=== PATIENT | male | born 1980 | race Caucasian/White ===

== ENCOUNTER 2017-02-06 02:47 | Inpatient (IN) | payer MEDICAID ==
[~2017-02-06] VITALS: Ht 165.1 cm; Wt 67.6 kg
[~2017-02-06 02:47] MED LIST: CLON-570 PO; FLUO-191 PO; HALO10 PO; TRAZ-147 PO; VALP250 PO
[2017-02-06 03:08] LABS: BASOPHILS % (AUTO) 0.9 % (0.0-2.0); EOSINOPHILS % (AUTO) 0.2 % (1.0-6.0); HEMOGLOBIN 13.6 g/dL (13.5-17.5); LYMPHOCYTES # (AUTO) 2.8 K/uL (1.0-4.8); LYMPHOCYTES % (AUTO) 30.5 % (22.0-44.0); MEAN CORPUSCULAR HEMOGLOBIN 30.3 pg (26.0-34.0); MEAN CORPUSCULAR VOLUME 89 fL (80-100); MONOCYTES # (AUTO) 0.9 K/uL (0.1-1.0); MONOCYTES % (AUTO) 9.7 % (2.0-9.0); NEUTROPHILS # (AUTO) 5.4 K/uL (1.8-7.7); NEUTROPHILS % (AUTO) 58.7 % (40.0-70.0); PLATELET COUNT (AUTO) 227 K/uL (150-450); RED BLOOD CELL COUNT(AUTO) 4.49 MIL/uL (4.50-5.90); RED CELL DISTRIBUTION WIDTH 15.3 % (11.5-14.5); WHITE BLOOD COUNT (AUTO) 9.2 K/uL (4.5-11.0)
[2017-02-06 03:16] LABS: ANION GAP 13 mmol/L (8-16); CALCIUM, TOTAL 8.9 mg/dL (8.8-10.5); CARBON DIOXIDE 26 mmol/L (22-29); CHLORIDE 107 mmol/L (98-107); CREATININE 0.76 mg/dL (0.60-1.30); GLOMERULAR FILTR. RATE CALC > 60 mL/min (>60); POTASSIUM 3.4 mmol/L (3.5-5.1); SODIUM SERUM 146 mmol/L (136-145); UREA NITROGEN, BLOOD 18 mg/dL (7-18)
[2017-02-06 03:23] LABS: ALANINE AMINOTRANSFERASE 31 U/L (12-78); ALBUMIN 3.8 g/dL (3.4-5.0); ASPARTATE AMINOTRANSFERASE 19 U/L (15-37); BILIRUBIN,TOTAL 0.4 mg/dL (0.1-1.0); TOTAL PROTEIN, SERUM 7.9 g/dL (6.4-8.2)
[2017-02-06] MEDS ORDERED: DiphenhydrAMINE HCL 50 MG/ML VIAL IM ONE (09:00)
[2017-02-06] MEDS ORDERED: HALOPERIDOL LACTATE 5 MG/ML VIAL IM ONE (09:00)
[2017-02-06] MEDS ORDERED: LORazepam 2 MG/ML VIAL IM ONE (09:00)
[2017-02-06] MEDS ORDERED: POTASSIUM CHLORIDE 20 MEQ ER TABLET PO ONE (14:15)
[2017-02-06 17:00] VITALS: BP 166/109
[2017-02-06] MEDS: VALPROIC ACID 250 MG CAPSULE PO SCH ×2 (17:07→17:10)
[2017-02-06] MEDS: HALOPERIDOL 10 MG TABLET PO SCH ×2 (17:07→17:11)
[2017-02-06] MEDS ORDERED: CloNIDine HCL 0.1 MG TABLET PO ONE (20:00)
[2017-02-06] MEDS ORDERED: TraZODone HCL 100 MG TABLET PO SCH (21:00)
[2017-02-06 21:58] VITALS: BP 128/88
[2017-02-07 02:05] VITALS: BP 159/115
[2017-02-07] MEDS: LORazepam 2 MG TABLET PO PRN ×2 (02:09→09:15)
[2017-02-07 08:00] VITALS: BP 143/96
[2017-02-07] MEDS: CloNIDine HCL 0.1 MG TABLET PO SCH ×2 (09:15→16:31)
[2017-02-07] MEDS: HALOPERIDOL 10 MG TABLET PO SCH ×2 (09:15→16:31)
[2017-02-07] MEDS: VALPROIC ACID 250 MG CAPSULE PO SCH ×2 (09:15→16:31)
[2017-02-07] MEDS: FLUoxetine HCL 20 MG CAPSULE PO SCH (09:15)
[2017-02-07] MEDS: TraZODone HCL 100 MG TABLET PO SCH (20:02)
[2017-02-07 20:31] VITALS: BP 139/93
[2017-02-08 02:48] VITALS: BP 150/100
[2017-02-08] MEDS: HALOPERIDOL 5 MG TABLET PO PRN (04:52)
[2017-02-08 08:30] VITALS: BP 132/86
[2017-02-08] MEDS: VALPROIC ACID 250 MG CAPSULE PO SCH ×2 (09:40→16:29)
[2017-02-08] MEDS: FLUoxetine HCL 20 MG CAPSULE PO SCH (09:40)
[2017-02-08] MEDS: HALOPERIDOL 10 MG TABLET PO SCH ×2 (09:40→16:28)
[2017-02-08] MEDS: CloNIDine HCL 0.1 MG TABLET PO SCH ×2 (09:41→16:28)
[2017-02-08] MEDS: LISINOPRIL 20 MG TABLET PO SCH (09:41)
[2017-02-08 17:04] VITALS: BP 148/61
[2017-02-08] MEDS: LOVASTATIN 20 MG TABLET PO SCH (17:32)
[2017-02-08] MEDS: TraZODone HCL 100 MG TABLET PO SCH (20:46)
[2017-02-09] MEDS: ZOLPIDEM TARTRATE 10 MG TABLET PO PRN (01:11)
[2017-02-09 02:56] VITALS: BP 143/92
[2017-02-09 08:44] VITALS: BP 138/93
[2017-02-09] MEDS ORDERED: HALOPERIDOL DECANOATE 100 MG/ML VIAL IM SCH (09:00)
[2017-02-09] MEDS: HALOPERIDOL 10 MG TABLET PO SCH ×2 (09:26→16:58)
[2017-02-09] MEDS: FLUoxetine HCL 20 MG CAPSULE PO SCH (09:26)
[2017-02-09] MEDS: LISINOPRIL 20 MG TABLET PO SCH (09:26)
[2017-02-09] MEDS: CloNIDine HCL 0.1 MG TABLET PO SCH ×2 (09:27→16:57)
[2017-02-09] MEDS: VALPROIC ACID 250 MG CAPSULE PO SCH ×2 (09:27→16:57)
[2017-02-09] MEDS: LOVASTATIN 20 MG TABLET PO SCH (16:57)
[2017-02-09 18:40] VITALS: BP 129/79
[2017-02-09] MEDS: TraZODone HCL 100 MG TABLET PO SCH (20:20)
[2017-02-10 01:42] VITALS: BP 126/77
[2017-02-10] MEDS: LORazepam 2 MG TABLET PO PRN (01:42)
[2017-02-10] MEDS: HALOPERIDOL 5 MG TABLET PO PRN (01:42)
[2017-02-10] MEDS: CloNIDine HCL 0.1 MG TABLET PO SCH ×2 (09:05→17:26)
[2017-02-10] MEDS: LISINOPRIL 20 MG TABLET PO SCH (09:06)
[2017-02-10] MEDS: HALOPERIDOL 10 MG TABLET PO SCH ×2 (09:06→17:26)
[2017-02-10] MEDS: FLUoxetine HCL 20 MG CAPSULE PO SCH (09:06)
[2017-02-10] MEDS: VALPROIC ACID 250 MG CAPSULE PO SCH ×2 (09:07→17:26)
[2017-02-10 09:52] VITALS: BP 115/79
[2017-02-10 17:19] VITALS: BP 116/77
[2017-02-10] MEDS: LOVASTATIN 20 MG TABLET PO SCH (17:26)
[2017-02-10] MEDS: TraZODone HCL 100 MG TABLET PO SCH (21:15)
[2017-02-11] MEDS: HALOPERIDOL 10 MG TABLET PO SCH ×2 (08:57→16:45)
[2017-02-11] MEDS: LISINOPRIL 20 MG TABLET PO SCH (08:57)
[2017-02-11] MEDS: CloNIDine HCL 0.1 MG TABLET PO SCH ×2 (08:58→16:45)
[2017-02-11] MEDS: VALPROIC ACID 250 MG CAPSULE PO SCH ×2 (08:58→16:45)
[2017-02-11] MEDS: FLUoxetine HCL 20 MG CAPSULE PO SCH (08:58)
[2017-02-11 10:21] VITALS: BP 131/82
[2017-02-11] MEDS: LOVASTATIN 20 MG TABLET PO SCH (16:45)
[2017-02-11] MEDS: TraZODone HCL 100 MG TABLET PO SCH (20:40)
[2017-02-12 04:03] VITALS: BP 126/80
[2017-02-12] MEDS: LISINOPRIL 20 MG TABLET PO SCH (07:59)
[2017-02-12] MEDS: HALOPERIDOL 10 MG TABLET PO SCH ×2 (08:00→16:37)
[2017-02-12] MEDS: FLUoxetine HCL 20 MG CAPSULE PO SCH (08:00)
[2017-02-12] MEDS: CloNIDine HCL 0.1 MG TABLET PO SCH ×2 (08:00→16:37)
[2017-02-12] MEDS: VALPROIC ACID 250 MG CAPSULE PO SCH ×2 (08:01→16:36)
[2017-02-12 08:12] VITALS: BP 142/85
[2017-02-12] MEDS: LOVASTATIN 20 MG TABLET PO SCH (16:38)
[2017-02-12 19:20] VITALS: BP 117/70
[2017-02-12] MEDS: TraZODone HCL 100 MG TABLET PO SCH (21:16)
[2017-02-13 05:30] VITALS: BP 123/82
[2017-02-13 08:00] VITALS: BP 159/96
[2017-02-13] MEDS: VALPROIC ACID 250 MG CAPSULE PO SCH ×2 (09:32→16:28)
[2017-02-13] MEDS: CloNIDine HCL 0.1 MG TABLET PO SCH ×2 (09:32→17:31)
[2017-02-13] MEDS: HALOPERIDOL 10 MG TABLET PO SCH ×2 (09:32→16:28)
[2017-02-13] MEDS: FLUoxetine HCL 20 MG CAPSULE PO SCH (09:33)
[2017-02-13] MEDS: LISINOPRIL 20 MG TABLET PO SCH (09:33)
[2017-02-13] MEDS: LOVASTATIN 20 MG TABLET PO SCH (16:28)
[2017-02-13 16:29] VITALS: BP 121/75
[2017-02-13] MEDS: TraZODone HCL 100 MG TABLET PO SCH (20:34)
[2017-02-14] MEDS: FLUoxetine HCL 20 MG CAPSULE PO SCH (09:33)
[2017-02-14] MEDS: CloNIDine HCL 0.1 MG TABLET PO SCH ×2 (09:33→16:30)
[2017-02-14] MEDS: HALOPERIDOL 10 MG TABLET PO SCH ×2 (09:33→16:30)
[2017-02-14] MEDS: LISINOPRIL 20 MG TABLET PO SCH (09:33)
[2017-02-14] MEDS: VALPROIC ACID 250 MG CAPSULE PO SCH ×2 (09:34→16:30)
[2017-02-14 10:12] VITALS: BP 129/80
[2017-02-14] MEDS: LOVASTATIN 20 MG TABLET PO SCH (16:30)
[2017-02-14] MEDS: TraZODone HCL 100 MG TABLET PO SCH (20:18)
[2017-02-14 21:49] VITALS: BP 125/76
[2017-02-15] MEDS: LORazepam 2 MG TABLET PO PRN (02:25)
[2017-02-15] MEDS: ZOLPIDEM TARTRATE 10 MG TABLET PO PRN (02:25)
[2017-02-15 03:33] VITALS: BP 132/85
[2017-02-15 08:05] VITALS: BP 120/73
[2017-02-15] MEDS: FLUoxetine HCL 20 MG CAPSULE PO SCH (08:53)
[2017-02-15] MEDS: CloNIDine HCL 0.1 MG TABLET PO SCH ×2 (08:53→16:48)
[2017-02-15] MEDS: LISINOPRIL 20 MG TABLET PO SCH (08:53)
[2017-02-15] MEDS: VALPROIC ACID 250 MG CAPSULE PO SCH ×2 (08:53→16:48)
[2017-02-15] MEDS: HALOPERIDOL 10 MG TABLET PO SCH ×2 (08:53→16:48)
[2017-02-15 16:36] VITALS: BP 134/81
[2017-02-15] MEDS: LOVASTATIN 20 MG TABLET PO SCH (16:48)
[2017-02-15] MEDS: TraZODone HCL 100 MG TABLET PO SCH (21:14)
[2017-02-16] MEDS: ZOLPIDEM TARTRATE 10 MG TABLET PO PRN (03:01)
[2017-02-16] MEDS: LORazepam 2 MG TABLET PO PRN (03:01)
[2017-02-16] MEDS: LISINOPRIL 20 MG TABLET PO SCH (08:22)
[2017-02-16] MEDS: HALOPERIDOL 10 MG TABLET PO SCH ×2 (08:22→18:02)
[2017-02-16] MEDS: CloNIDine HCL 0.1 MG TABLET PO SCH ×2 (08:23→18:01)
[2017-02-16] MEDS: FLUoxetine HCL 20 MG CAPSULE PO SCH (08:23)
[2017-02-16] MEDS: VALPROIC ACID 250 MG CAPSULE PO SCH ×2 (08:23→18:01)
[2017-02-16 08:41] VITALS: BP_SYST 105; BP_SYST 148; BP_DIAS 56; BP_DIAS 99
[2017-02-16] MEDS: LOVASTATIN 20 MG TABLET PO SCH (18:01)
[2017-02-16] MEDS: TraZODone HCL 100 MG TABLET PO SCH (21:40)
[2017-02-16 21:52] VITALS: BP 139/78
[2017-02-17 00:37] VITALS: BP 140/80
[2017-02-17] MEDS: HALOPERIDOL 5 MG TABLET PO PRN (00:37)
[2017-02-17 08:00] VITALS: BP 150/100
[2017-02-17] MEDS: HALOPERIDOL 10 MG TABLET PO SCH ×2 (10:00→16:12)
[2017-02-17] MEDS: FLUoxetine HCL 20 MG CAPSULE PO SCH (10:00)
[2017-02-17] MEDS: CloNIDine HCL 0.1 MG TABLET PO SCH ×2 (10:00→16:12)
[2017-02-17] MEDS: LISINOPRIL 20 MG TABLET PO SCH (10:00)
[2017-02-17] MEDS: VALPROIC ACID 250 MG CAPSULE PO SCH ×2 (10:00→16:13)
[2017-02-17 16:10] VITALS: BP 148/93
[2017-02-17] MEDS: LOVASTATIN 20 MG TABLET PO SCH (18:37)
[2017-02-17] MEDS: TraZODone HCL 100 MG TABLET PO SCH (21:36)
[2017-02-18 02:52] VITALS: BP 137/88
[2017-02-18] MEDS: HALOPERIDOL 5 MG TABLET PO PRN (02:58)
[2017-02-18 09:19] VITALS: BP 147/88
[2017-02-18] MEDS: CloNIDine HCL 0.1 MG TABLET PO SCH ×2 (09:46→17:02)
[2017-02-18] MEDS: VALPROIC ACID 250 MG CAPSULE PO SCH ×2 (09:46→16:03)
[2017-02-18] MEDS: FLUoxetine HCL 20 MG CAPSULE PO SCH (09:46)
[2017-02-18] MEDS: LISINOPRIL 20 MG TABLET PO SCH (09:47)
[2017-02-18] MEDS: HALOPERIDOL 10 MG TABLET PO SCH ×2 (09:47→16:04)
[2017-02-18] MEDS: LOVASTATIN 20 MG TABLET PO SCH (16:03)
[2017-02-18 16:52] VITALS: BP 115/75
[2017-02-18] MEDS: TraZODone HCL 100 MG TABLET PO SCH (20:44)
[2017-02-19] MEDS: HALOPERIDOL 5 MG TABLET PO PRN (04:18)
[2017-02-19 04:27] VITALS: BP 144/91
[2017-02-19 08:02] VITALS: BP 131/87
[2017-02-19] MEDS: HALOPERIDOL 10 MG TABLET PO SCH (08:28)
[2017-02-19] MEDS: CloNIDine HCL 0.1 MG TABLET PO SCH (08:28)
[2017-02-19] MEDS: FLUoxetine HCL 20 MG CAPSULE PO SCH (08:28)
[2017-02-19] MEDS: LISINOPRIL 20 MG TABLET PO SCH (08:28)
[2017-02-19] MEDS: VALPROIC ACID 250 MG CAPSULE PO SCH (08:29)
[2017-02-19] MEDS ORDERED: HALO100V4 IM (10:32)
[2017-02-19] MEDS ORDERED: TRAZ150 PO (10:34)
[2017-02-19] MEDS ORDERED: LISI-662 PO (10:37)
[2017-02-19] MEDS ORDERED: LOVA20 PO (10:39)
[2017-02-19 13:37] LABS: BASOPHILS % (AUTO) 0.4 % (0.0-2.0); EOSINOPHILS % (AUTO) 0.5 % (1.0-6.0); HEMATOCRIT 40.8 % (41-53); HEMOGLOBIN 13.8 g/dL (13.5-17.5); LYMPHOCYTES # (AUTO) 2.5 K/uL (1.0-4.8); LYMPHOCYTES % (AUTO) 26.7 % (22.0-44.0); MEAN CORPUSCULAR HEMOGLOBIN 30.6 pg (26.0-34.0); MEAN CORPUSCULAR HGB CONC 33.8 G/dL (31.0-37.0); MEAN CORPUSCULAR VOLUME 91 fL (80-100); MONOCYTES # (AUTO) 0.7 K/uL (0.1-1.0); MONOCYTES % (AUTO) 7.1 % (2.0-9.0); NEUTROPHILS # (AUTO) 6.1 K/uL (1.8-7.7); NEUTROPHILS % (AUTO) 65.3 % (40.0-70.0); PLATELET COUNT (AUTO) 219 K/uL (150-450); RED BLOOD CELL COUNT(AUTO) 4.51 MIL/uL (4.50-5.90); RED CELL DISTRIBUTION WIDTH 15.6 % (11.5-14.5); WHITE BLOOD COUNT (AUTO) 9.4 K/uL (4.5-11.0)
[2017-02-19 13:46] LABS: ANION GAP 7 mmol/L (8-16); CALCIUM, TOTAL 9.2 mg/dL (8.8-10.5); CARBON DIOXIDE 31 mmol/L (22-29); CHLORIDE 99 mmol/L (98-107); CREATININE 0.75 mg/dL (0.60-1.30); GLOMERULAR FILTR. RATE CALC > 60 mL/min (>60); POTASSIUM 4.7 mmol/L (3.5-5.1); SODIUM SERUM 137 mmol/L (136-145); UREA NITROGEN, BLOOD 13 mg/dL (7-18)
[2017-02-19 13:52] LABS: ALANINE AMINOTRANSFERASE 22 U/L (12-78); ALBUMIN 3.9 g/dL (3.4-5.0); ASPARTATE AMINOTRANSFERASE 13 U/L (15-37); BILIRUBIN,TOTAL 0.2 mg/dL (0.1-1.0); TOTAL PROTEIN, SERUM 8.1 g/dL (6.4-8.2); VALPROIC ACID 103 mcg/mL (50-100)
== END 2017-02-19 14:30 | disposition home or self-care (01) | DRG 751 ==
LOC: EMS 02:48 → 3EI 15:35
PROVIDERS: ADMIT Psychiatry & Neurology Psychiatry; ATTEND Psychiatry & Neurology Psychiatry
DX: F29 Unspecified psychosis not due to a substance or known physiological condition (principal); F20.9 Schizophrenia, unspecified; I10 Essential (primary) hypertension; E78.5 Hyperlipidemia, unspecified; F41.9 Anxiety disorder, unspecified; F22 Delusional disorders; Z79.899 Other long term (current) drug therapy
CPT/HCPCS: 84132; 87081; 96372; 99285; G0480; J1200; J1630; J1631; J2060

== ENCOUNTER 2017-03-22 01:20 | Emergency (ER) | payer MEDICAID ==
[~2017-03-22] VITALS: Ht 167.6 cm; Wt 68.2 kg
[~2017-03-22 01:20] MED LIST changes: +HALO100V4 IM; +LISI-662 PO; +LOVA20 PO; -TRAZ-147 PO; +TRAZ150 PO
[2017-03-22] MEDS ORDERED: OLANZapine 5 MG TABLET PO ONE (02:00)
[2017-03-22 02:15] LABS: ANION GAP 8 mmol/L (8-16); CARBON DIOXIDE 29 mmol/L (22-29); CHLORIDE 102 mmol/L (98-107); CREATININE 0.81 mg/dL (0.60-1.30); GLOMERULAR FILTR. RATE CALC > 60 mL/min (>60); POTASSIUM 3.7 mmol/L (3.5-5.1); SODIUM SERUM 139 mmol/L (136-145); UREA NITROGEN, BLOOD 17 mg/dL (7-18)
[2017-03-22 02:21] LABS: ALANINE AMINOTRANSFERASE 27 U/L (12-78); ALBUMIN 4.4 g/dL (3.4-5.0); ASPARTATE AMINOTRANSFERASE 31 U/L (15-37); BILIRUBIN,TOTAL 0.5 mg/dL (0.1-1.0); TOTAL PROTEIN, SERUM 8.3 g/dL (6.4-8.2)
[2017-03-22 02:23] LABS: BASOPHILS # (AUTO) 0.05 K/uL (0.00-0.20); BASOPHILS % (AUTO) 0.6 % (0.0-2.0); EOSINOPHILS # (AUTO) 0.05 K/uL (0.00-0.70); EOSINOPHILS % (AUTO) 0.64 % (1.0-6.0); HEMOGLOBIN 13.5 g/dL (13.5-17.5); LYMPHOCYTES # (AUTO) 3.2 K/uL (1.0-4.8); LYMPHOCYTES % (AUTO) 39.1 % (22.0-44.0); MEAN CORPUSCULAR HEMOGLOBIN 31.1 pg (26.0-34.0); MEAN CORPUSCULAR HGB CONC 33.8 G/dL (31.0-37.0); MEAN CORPUSCULAR VOLUME 92 fL (80-100); MONOCYTES # (AUTO) 0.8 K/uL (0.1-1.0); MONOCYTES % (AUTO) 10.4 % (2.0-9.0); NEUTROPHILS % (AUTO) 49.4 % (40.0-70.0); PLATELET COUNT (AUTO) 222 K/uL (150-450); RED BLOOD CELL COUNT(AUTO) 4.35 MIL/uL (4.50-5.90); RED CELL DISTRIBUTION WIDTH 14.7 % (11.5-14.5); WHITE BLOOD COUNT (AUTO) 8.2 K/uL (4.5-11.0)
[2017-03-22 03:04] VITALS: BP 144/87
== END 2017-03-22 03:10 | disposition home or self-care (01) ==
LOC: EMS 01:21
DX: F25.9 Schizoaffective disorder, unspecified (principal); F32.9 Major depressive disorder, single episode, unspecified; I10 Essential (primary) hypertension
CPT/HCPCS: 36415; 80053; 80307; 85025; 99284; G0480

== ENCOUNTER 2017-03-23 21:39 | Inpatient (IN) | payer MEDICAID ==
[~2017-03-23] VITALS: Ht 167.6 cm; Wt 71.7 kg
[2017-03-23] MEDS ORDERED: LORazepam 2 MG/ML VIAL ONE (21:59)
[2017-03-23] MEDS ORDERED: HALOPERIDOL LACTATE 5 MG/ML VIAL ONE (21:59)
[2017-03-23] MEDS ORDERED: DiphenhydrAMINE HCL 50 MG/ML VIAL ONE (21:59)
[2017-03-23] MEDS ORDERED: DiphenhydrAMINE HCL 50 MG/ML VIAL IM ONE (22:00)
[2017-03-23] MEDS ORDERED: LORazepam 2 MG/ML VIAL IM ONE (22:00)
[2017-03-23] MEDS ORDERED: HALOPERIDOL LACTATE 5 MG/ML VIAL IM ONE (22:00)
[2017-03-23 22:16] LABS: BASOPHILS % (AUTO) 0.7 % (0.0-2.0); EOSINOPHILS % (AUTO) 0.4 % (1.0-6.0); HEMOGLOBIN 13.1 g/dL (13.5-17.5); LYMPHOCYTES # (AUTO) 2.4 K/uL (1.0-4.8); LYMPHOCYTES % (AUTO) 29.2 % (22.0-44.0); MEAN CORPUSCULAR HEMOGLOBIN 30.9 pg (26.0-34.0); MEAN CORPUSCULAR HGB CONC 33.6 G/dL (31.0-37.0); MEAN CORPUSCULAR VOLUME 92 fL (80-100); MONOCYTES # (AUTO) 0.6 K/uL (0.1-1.0); MONOCYTES % (AUTO) 7.6 % (2.0-9.0); NEUTROPHILS % (AUTO) 62.1 % (40.0-70.0); PLATELET COUNT (AUTO) 237 K/uL (150-450); RED BLOOD CELL COUNT(AUTO) 4.24 MIL/uL (4.50-5.90); RED CELL DISTRIBUTION WIDTH 14.6 % (11.5-14.5)
[2017-03-23 22:27] LABS: ANION GAP 11 mmol/L (8-16); CALCIUM, TOTAL 8.9 mg/dL (8.8-10.5); CARBON DIOXIDE 25 mmol/L (22-29); CHLORIDE 102 mmol/L (98-107); CREATININE 1.11 mg/dL (0.60-1.30); GLOMERULAR FILTR. RATE CALC > 60 mL/min (>60); GLUCOSE,RANDOM 100 mg/dL (70-110); POTASSIUM 4.3 mmol/L (3.5-5.1); SODIUM SERUM 138 mmol/L (136-145); UREA NITROGEN, BLOOD 17 mg/dL (7-18)
[2017-03-23 22:42] LABS: ALANINE AMINOTRANSFERASE 28 U/L (12-78); ALBUMIN 3.9 g/dL (3.4-5.0); ALKALINE PHOSPHATASE 47 U/L (46-116); ASPARTATE AMINOTRANSFERASE 31 U/L (15-37); BILIRUBIN,TOTAL 0.5 mg/dL (0.1-1.0); TOTAL PROTEIN, SERUM 7.5 g/dL (6.4-8.2)
[2017-03-23 22:59] LABS: VALPROIC ACID < 2 mcg/mL (50-100)
[2017-03-24 00:51] LABS: CHOL/HDL RATIO 3.5 (4.2-7.3); CHOLESTEROL 184 mg/dL (131-200); HDL CHOLESTEROL 53 mg/dL (40-60); LDL CHOL (CALC.) 117 mg/dL (0-130); TRIGLYCERIDES 69 mg/dL (15-150)
[2017-03-24 04:43] VITALS: BP 142/93
[2017-03-24] MEDS ORDERED: INFLUENZA VIRUS VACCINE QVS 2017-18 (3YR+)/PF 60 MCG/0.5 ML SYRINGE IM ONE (06:15)
[2017-03-24] MEDS ORDERED: PNEUMOCOCCAL VACCINE POLYVALENT 0.5 ML VIAL [PPSV23] IM ONE (06:15)
[2017-03-24 08:11] VITALS: BP 145/90
[2017-03-24 08:11] LABS: APPEARANCE,URINE CLEAR (CLEAR); BILIRUBIN,URINE NEGATIVE (NEGATIVE); GLUCOSE, URINE (UA) NEGATIVE (NEGATIVE); KETONES,URINE NEGATIVE (NEGATIVE); LEUKOCYTE ESTERASE ,URINE NEGATIVE (NEGATIVE); NITRATE,URINE NEGATIVE (NEGATIVE); OCCULT BLOOD,URINE NEGATIVE (NEGATIVE); PH,URINE 6.5 (5.0-8.0); PROTEIN,URINE NEGATIVE (NEGATIVE); UROBILINOGEN,URINE 0.2 mg/dL (<=1.0)
[2017-03-24 08:13] LABS: AMPHET/METH SCREEN,URINE NEGATIVE (NEGATIVE); BARBITURATE SCREEN, URINE NEGATIVE (NEGATIVE); BENZODIAZEPINES SCREEN,URINE NEGATIVE (NEGATIVE); CANNABINOID SCREEN,URINE NEGATIVE (NEGATIVE); COCAINE SCREEN,URINE NEGATIVE (NEGATIVE); METHADONE SCREEN, URINE NEGATIVE (NEGATIVE); OPIATE SCREEN,URINE NEGATIVE (NEGATIVE)
[2017-03-24 08:15] LABS: PHENCYCLIDINE SCREEN,URINE NEGATIVE (NEGATIVE)
[2017-03-24] MEDS: LORazepam 2 MG TABLET PO PRN ×2 (08:54→17:32)
[2017-03-24] MEDS: CloNIDine HCL 0.1 MG TABLET PO SCH ×2 (09:17→16:23)
[2017-03-24 16:18] VITALS: BP 137/84
[2017-03-24] MEDS: HALOPERIDOL 5 MG TABLET PO PRN (16:23)
[2017-03-24] MEDS: LOVASTATIN 20 MG TABLET PO SCH (17:00)
[2017-03-24] MEDS: TraZODone HCL 150 MG TABLET PO SCH (21:21)
[2017-03-25 06:32] VITALS: BP 135/85
[2017-03-25] MEDS: CloNIDine HCL 0.1 MG TABLET PO SCH ×2 (08:38→16:14)
[2017-03-25] MEDS: FLUoxetine HCL 20 MG CAPSULE PO SCH (08:38)
[2017-03-25] MEDS: VALPROIC ACID 250 MG CAPSULE PO SCH ×2 (08:38→16:14)
[2017-03-25 08:53] VITALS: BP 117/72
[2017-03-25] MEDS: LOVASTATIN 20 MG TABLET PO SCH (16:14)
[2017-03-25] MEDS: LORazepam 2 MG TABLET PO PRN (16:15)
[2017-03-25 16:36] VITALS: BP 115/74
[2017-03-25] MEDS: HALOPERIDOL 5 MG TABLET PO PRN (21:24)
[2017-03-25] MEDS: TraZODone HCL 150 MG TABLET PO SCH (21:24)
[2017-03-26 05:53] VITALS: BP 122/83
[2017-03-26] MEDS: VALPROIC ACID 250 MG CAPSULE PO SCH ×2 (08:10→17:04)
[2017-03-26] MEDS: CloNIDine HCL 0.1 MG TABLET PO SCH ×2 (08:10→17:04)
[2017-03-26] MEDS: FLUoxetine HCL 20 MG CAPSULE PO SCH (08:10)
[2017-03-26 08:19] VITALS: BP 125/74
[2017-03-26] MEDS: LORazepam 2 MG TABLET PO PRN ×2 (08:47→17:04)
[2017-03-26 16:00] VITALS: BP 120/73
[2017-03-26] MEDS: LOVASTATIN 20 MG TABLET PO SCH (17:04)
[2017-03-26] MEDS: TraZODone HCL 150 MG TABLET PO SCH (21:06)
[2017-03-26] MEDS: ZOLPIDEM TARTRATE 10 MG TABLET PO PRN (21:09)
[2017-03-27 05:53] VITALS: BP 119/75
[2017-03-27 08:16] VITALS: BP 138/74
[2017-03-27] MEDS ORDERED: HALOPERIDOL DECANOATE 100 MG/ML VIAL IM ONE (09:00)
[2017-03-27] MEDS: VALPROIC ACID 250 MG CAPSULE PO SCH ×2 (09:24→17:02)
[2017-03-27] MEDS: CloNIDine HCL 0.1 MG TABLET PO SCH ×2 (09:24→17:02)
[2017-03-27] MEDS: FLUoxetine HCL 20 MG CAPSULE PO SCH (09:24)
[2017-03-27] MEDS: LORazepam 2 MG TABLET PO PRN ×2 (09:24→17:02)
[2017-03-27 16:00] VITALS: BP 131/69
[2017-03-27] MEDS: LOVASTATIN 20 MG TABLET PO SCH (17:02)
[2017-03-27] MEDS: HALOPERIDOL 5 MG TABLET PO PRN (17:02)
[2017-03-27] MEDS: TraZODone HCL 150 MG TABLET PO SCH (20:32)
[2017-03-27] MEDS: ZOLPIDEM TARTRATE 10 MG TABLET PO PRN (20:32)
[2017-03-28 06:30] VITALS: BP 114/70
[2017-03-28 08:14] VITALS: BP 128/79
[2017-03-28] MEDS: CloNIDine HCL 0.1 MG TABLET PO SCH ×2 (08:14→16:06)
[2017-03-28] MEDS: FLUoxetine HCL 20 MG CAPSULE PO SCH (08:14)
[2017-03-28] MEDS: VALPROIC ACID 250 MG CAPSULE PO SCH ×2 (08:15→16:06)
[2017-03-28] MEDS: LORazepam 2 MG TABLET PO PRN ×3 (08:15→20:33)
[2017-03-28 16:00] VITALS: BP 120/77
[2017-03-28] MEDS: LOVASTATIN 20 MG TABLET PO SCH (16:07)
[2017-03-28] MEDS: HALOPERIDOL 5 MG TABLET PO PRN (16:07)
[2017-03-28] MEDS: ZOLPIDEM TARTRATE 10 MG TABLET PO PRN (20:33)
[2017-03-28] MEDS: TraZODone HCL 150 MG TABLET PO SCH (20:33)
[2017-03-29 05:55] VITALS: BP 124/79
[2017-03-29 08:14] VITALS: BP 117/64
[2017-03-29] MEDS: VALPROIC ACID 250 MG CAPSULE PO SCH ×2 (08:22→16:44)
[2017-03-29] MEDS: CloNIDine HCL 0.1 MG TABLET PO SCH ×2 (08:22→16:45)
[2017-03-29] MEDS: FLUoxetine HCL 20 MG CAPSULE PO SCH (08:22)
[2017-03-29] MEDS: LORazepam 2 MG TABLET PO PRN ×2 (08:23→16:45)
[2017-03-29 16:37] VITALS: BP 116/72
[2017-03-29] MEDS: LOVASTATIN 20 MG TABLET PO SCH (16:45)
[2017-03-29] MEDS: HALOPERIDOL 5 MG TABLET PO PRN (16:45)
[2017-03-29] MEDS: TraZODone HCL 150 MG TABLET PO SCH (20:27)
[2017-03-30 06:20] VITALS: BP 119/82
[2017-03-30 08:41] VITALS: BP 122/84
[2017-03-30] MEDS: FLUoxetine HCL 20 MG CAPSULE PO SCH (09:44)
[2017-03-30] MEDS: CloNIDine HCL 0.1 MG TABLET PO SCH ×2 (09:44→16:29)
[2017-03-30] MEDS: VALPROIC ACID 250 MG CAPSULE PO SCH ×2 (09:44→16:29)
[2017-03-30 16:00] VITALS: BP 130/81
[2017-03-30] MEDS: LOVASTATIN 20 MG TABLET PO SCH (16:28)
[2017-03-30] MEDS: TraZODone HCL 150 MG TABLET PO SCH (20:49)
[2017-03-31 06:38] VITALS: BP 129/82
[2017-03-31 08:22] VITALS: BP 126/71
[2017-03-31] MEDS: LORazepam 2 MG TABLET PO PRN (09:08)
[2017-03-31] MEDS: VALPROIC ACID 250 MG CAPSULE PO SCH ×2 (09:08→16:25)
[2017-03-31] MEDS: CloNIDine HCL 0.1 MG TABLET PO SCH ×2 (09:08→16:25)
[2017-03-31] MEDS: FLUoxetine HCL 20 MG CAPSULE PO SCH (09:08)
[2017-03-31 16:00] VITALS: BP 130/76
[2017-03-31] MEDS: LOVASTATIN 20 MG TABLET PO SCH (16:25)
[2017-03-31] MEDS: TraZODone HCL 150 MG TABLET PO SCH (20:28)
[2017-03-31] MEDS: ZOLPIDEM TARTRATE 10 MG TABLET PO PRN (21:25)
[2017-04-01 06:27] VITALS: BP 138/89
[2017-04-01 08:21] VITALS: BP 136/79
[2017-04-01] MEDS: VALPROIC ACID 250 MG CAPSULE PO SCH ×2 (08:38→16:46)
[2017-04-01] MEDS: FLUoxetine HCL 20 MG CAPSULE PO SCH (08:38)
[2017-04-01] MEDS: CloNIDine HCL 0.1 MG TABLET PO SCH ×2 (08:38→16:46)
[2017-04-01 16:00] VITALS: BP 130/84
[2017-04-01] MEDS: HALOPERIDOL 5 MG TABLET PO PRN (16:46)
[2017-04-01] MEDS: LORazepam 2 MG TABLET PO PRN (16:46)
[2017-04-01] MEDS: LOVASTATIN 20 MG TABLET PO SCH (16:47)
[2017-04-01] MEDS: TraZODone HCL 150 MG TABLET PO SCH (20:56)
[2017-04-02 07:05] VITALS: BP 131/78
[2017-04-02] MEDS: CloNIDine HCL 0.1 MG TABLET PO SCH ×2 (08:25→16:52)
[2017-04-02] MEDS: VALPROIC ACID 250 MG CAPSULE PO SCH ×2 (08:26→16:52)
[2017-04-02] MEDS: FLUoxetine HCL 20 MG CAPSULE PO SCH (08:26)
[2017-04-02 08:52] VITALS: BP 141/92
[2017-04-02 16:00] VITALS: BP 136/87
[2017-04-02] MEDS: LOVASTATIN 20 MG TABLET PO SCH (16:52)
[2017-04-02] MEDS: LORazepam 2 MG TABLET PO PRN (16:52)
[2017-04-02] MEDS: TraZODone HCL 150 MG TABLET PO SCH (20:31)
[2017-04-03 03:19] VITALS: BP 140/90
[2017-04-03 09:34] VITALS: BP 128/75
[2017-04-03] MEDS: CloNIDine HCL 0.1 MG TABLET PO SCH ×2 (09:52→16:08)
[2017-04-03] MEDS: FLUoxetine HCL 20 MG CAPSULE PO SCH (09:52)
[2017-04-03] MEDS: VALPROIC ACID 250 MG CAPSULE PO SCH ×2 (09:52→16:08)
[2017-04-03] MEDS: LOVASTATIN 20 MG TABLET PO SCH (16:08)
[2017-04-03 18:06] VITALS: BP 122/79
[2017-04-03] MEDS: TraZODone HCL 150 MG TABLET PO SCH (20:24)
[2017-04-04 04:47] VITALS: BP 138/78
[2017-04-04 08:21] VITALS: BP 135/84
[2017-04-04] MEDS: CloNIDine HCL 0.1 MG TABLET PO SCH (09:33)
[2017-04-04] MEDS: FLUoxetine HCL 20 MG CAPSULE PO SCH (09:33)
[2017-04-04] MEDS: VALPROIC ACID 250 MG CAPSULE PO SCH (09:34)
== END 2017-04-04 11:10 | disposition home or self-care (01) | DRG 750 ==
LOC: EMS 21:40 → B3A 03-24 01:13
PROVIDERS: ADMIT Psychiatry & Neurology Child & Adolescent Psychiatry; ATTEND Psychiatry & Neurology Psychiatry
DX: F25.0 Schizoaffective disorder, bipolar type (principal); Z78.1 Physical restraint status; I10 Essential (primary) hypertension; E78.5 Hyperlipidemia, unspecified; D64.9 Anemia, unspecified; F41.9 Anxiety disorder, unspecified; Z79.899 Other long term (current) drug therapy; Z91.14 Patient's other noncompliance with medication regimen; Z28.21 Immunization not carried out because of patient refusal
CPT/HCPCS: 80307; 84443; 90471; 96372; 99291; G0480; J1200; J1630; J1631; J2060

== ENCOUNTER 2017-07-11 11:28 | Inpatient (IN) | payer MEDICAID ==
[~2017-07-11] VITALS: Ht 167.6 cm; Wt 68.5 kg
[~2017-07-11 11:28] MED LIST changes: -HALO10 PO; -HALO100V4 IM; -LISI-662 PO
[2017-07-11 11:56] LABS: BASOPHILS % (AUTO) 0.7 % (0.0-2.0); EOSINOPHILS % (AUTO) 0.2 % (1.0-6.0); HEMATOCRIT 42.1 % (41-53); HEMOGLOBIN 14.3 g/dL (13.5-17.5); LYMPHOCYTES # (AUTO) 2.5 K/uL (1.0-4.8); LYMPHOCYTES % (AUTO) 32.4 % (22.0-44.0); MEAN CORPUSCULAR HEMOGLOBIN 30.3 pg (26.0-34.0); MEAN CORPUSCULAR HGB CONC 33.9 G/dL (31.0-37.0); MEAN CORPUSCULAR VOLUME 89 fL (80-100); MONOCYTES # (AUTO) 0.5 K/uL (0.1-1.0); MONOCYTES % (AUTO) 6.6 % (2.0-9.0); NEUTROPHILS # (AUTO) 4.6 K/uL (1.8-7.7); NEUTROPHILS % (AUTO) 60.1 % (40.0-70.0); PLATELET COUNT (AUTO) 263 K/uL (150-450); RED BLOOD CELL COUNT(AUTO) 4.71 MIL/uL (4.50-5.90); RED CELL DISTRIBUTION WIDTH 14.3 % (11.5-14.5)
[2017-07-11 12:17] LABS: ANION GAP 5 mmol/L (8-16); CALCIUM, TOTAL 9.4 mg/dL (8.8-10.5); CARBON DIOXIDE 31 mmol/L (22-29); CHLORIDE 103 mmol/L (98-107); CREATININE 0.67 mg/dL (0.60-1.30); GLOMERULAR FILTR. RATE CALC > 60 mL/min (>60); GLUCOSE,RANDOM 101 mg/dL (70-110); POTASSIUM 4.6 mmol/L (3.5-5.1); SODIUM SERUM 139 mmol/L (136-145); UREA NITROGEN, BLOOD 14 mg/dL (7-18)
[2017-07-11 12:23] LABS: ALANINE AMINOTRANSFERASE 30 U/L (12-78); ALBUMIN 4.4 g/dL (3.4-5.0); ALKALINE PHOSPHATASE 55 U/L (46-116); ASPARTATE AMINOTRANSFERASE 21 U/L (15-37); BILIRUBIN,TOTAL 0.8 mg/dL (0.1-1.0); TOTAL PROTEIN, SERUM 8.5 g/dL (6.4-8.2)
[2017-07-11 13:30] LABS: AMPHET/METH SCREEN,URINE NEGATIVE (NEGATIVE); BARBITURATE SCREEN, URINE NEGATIVE (NEGATIVE); BENZODIAZEPINES SCREEN,URINE NEGATIVE (NEGATIVE); CANNABINOID SCREEN,URINE NEGATIVE (NEGATIVE); COCAINE SCREEN,URINE NEGATIVE (NEGATIVE); METHADONE SCREEN, URINE NEGATIVE (NEGATIVE); OPIATE SCREEN,URINE NEGATIVE (NEGATIVE)
[2017-07-11 13:33] LABS: PHENCYCLIDINE SCREEN,URINE NEGATIVE (NEGATIVE)
[2017-07-11] MEDS ORDERED: ZOLPIDEM TARTRATE 10 MG TABLET PO PRN (14:30)
[2017-07-11] MEDS: LORazepam 2 MG TABLET PO PRN (19:27)
[2017-07-11] MEDS: HALOPERIDOL 5 MG TABLET PO PRN (19:27)
[2017-07-11 19:35] VITALS: BP 143/89
[2017-07-11] MEDS ORDERED: PNEUMOCOCCAL VACCINE POLYVALENT 0.5 ML VIAL [PPSV23] IM ONE (20:45)
[2017-07-11] MEDS ORDERED: INFLUENZA VIRUS VACCINE QVS 2017-18 (3YR+)/PF 60 MCG/0.5 ML SYRINGE IM ONE (20:45)
[2017-07-12 06:33] VITALS: BP 106/77
[2017-07-12] MEDS ORDERED: ACETAMINOPHEN 325 MG TABLET PO PRN (07:15)
[2017-07-12] MEDS ORDERED: ALBUTEROL SULFATE HFA 90 MCG/PUFF 8 GM INHALER IH PRN (07:15)
[2017-07-12] MEDS ORDERED: IBUPROFEN 600 MG TABLET PO PRN (07:15)
[2017-07-12] MEDS ORDERED: BACITRACIN 28.4 GM OINTMENT TP PRN (07:15)
[2017-07-12] MEDS ORDERED: ONDANSETRON HCL 4 MG TABLET PO PRN (07:15)
[2017-07-12] MEDS ORDERED: MAG HYDROX/AL HYDROX/SIMETH ES 30 ML SUSPENSION UDCUP PO PRN (07:15)
[2017-07-12] MEDS ORDERED: LOPERAMIDE HCL 2 MG CAPSULE PO PRN (07:15)
[2017-07-12] MEDS ORDERED: MAGNESIUM HYDROXIDE SUSPENSION 30 ML UDCUP PO PRN (07:15)
[2017-07-12] MEDS ORDERED: BENZOCAINE/MENTHOL LOZENGE MM PRN (07:15)
[2017-07-12] MEDS ORDERED: CloNIDine HCL 0.1 MG TABLET PO PRN (07:15)
[2017-07-12] MEDS ORDERED: PETROLATUM,WHITE 71 GM JELLY TP PRN (07:15)
[2017-07-12 08:10] VITALS: BP 139/84
[2017-07-12 08:42] LABS: CHOL/HDL RATIO 3.4 (4.2-7.3)
[2017-07-12] MEDS: CloNIDine HCL 0.1 MG TABLET PO SCH ×2 (09:23→17:32)
[2017-07-12] MEDS: LOVASTATIN 20 MG TABLET PO SCH (09:23)
[2017-07-12 16:00] VITALS: BP 128/79
[2017-07-12] MEDS: HALOPERIDOL 5 MG TABLET PO PRN (17:32)
[2017-07-12] MEDS: LORazepam 2 MG TABLET PO PRN (17:32)
[2017-07-12] MEDS: TraZODone HCL 150 MG TABLET PO SCH (21:47)
[2017-07-13 08:24] VITALS: BP 122/72
[2017-07-13] MEDS: LOVASTATIN 20 MG TABLET PO SCH (09:09)
[2017-07-13] MEDS: FLUoxetine HCL 20 MG CAPSULE PO SCH (09:09)
[2017-07-13] MEDS: VALPROIC ACID 250 MG CAPSULE PO SCH ×2 (09:09→16:24)
[2017-07-13] MEDS: CloNIDine HCL 0.1 MG TABLET PO SCH ×2 (09:09→16:24)
[2017-07-13 16:24] VITALS: BP 131/80
[2017-07-13] MEDS: TraZODone HCL 150 MG TABLET PO SCH (20:11)
[2017-07-14 06:20] VITALS: BP 123/74
[2017-07-14 08:09] VITALS: BP 130/74
[2017-07-14] MEDS: LOVASTATIN 20 MG TABLET PO SCH (08:33)
[2017-07-14] MEDS: CloNIDine HCL 0.1 MG TABLET PO SCH ×2 (08:33→17:27)
[2017-07-14] MEDS: FLUoxetine HCL 20 MG CAPSULE PO SCH (08:33)
[2017-07-14] MEDS: VALPROIC ACID 250 MG CAPSULE PO SCH ×2 (08:34→17:26)
[2017-07-14 16:10] VITALS: BP 111/65
[2017-07-14] MEDS: LORazepam 2 MG TABLET PO PRN (17:27)
[2017-07-14] MEDS: TraZODone HCL 150 MG TABLET PO SCH (20:45)
[2017-07-15 05:57] VITALS: BP 115/72
[2017-07-15 08:24] VITALS: BP 132/73
[2017-07-15] MEDS: VALPROIC ACID 250 MG CAPSULE PO SCH ×2 (09:48→17:04)
[2017-07-15] MEDS: LOVASTATIN 20 MG TABLET PO SCH (09:49)
[2017-07-15] MEDS: CloNIDine HCL 0.1 MG TABLET PO SCH ×2 (09:49→17:04)
[2017-07-15] MEDS: FLUoxetine HCL 20 MG CAPSULE PO SCH (09:49)
[2017-07-15] MEDS: LORazepam 2 MG TABLET PO PRN ×2 (09:54→17:04)
[2017-07-15 16:00] VITALS: BP 109/62
[2017-07-15] MEDS: TraZODone HCL 150 MG TABLET PO SCH (20:33)
[2017-07-16 06:30] VITALS: BP 103/69
[2017-07-16 08:12] VITALS: BP 110/62
[2017-07-16] MEDS: LOVASTATIN 20 MG TABLET PO SCH (09:33)
[2017-07-16] MEDS: CloNIDine HCL 0.1 MG TABLET PO SCH ×2 (09:33→16:26)
[2017-07-16] MEDS: VALPROIC ACID 250 MG CAPSULE PO SCH ×2 (09:33→16:26)
[2017-07-16] MEDS: FLUoxetine HCL 20 MG CAPSULE PO SCH (09:36)
[2017-07-16 16:00] VITALS: BP 114/66
== END 2017-07-16 20:20 | disposition home or self-care (01) | DRG 750 ==
LOC: EMS 11:29 → B3A 18:04
PROVIDERS: ADMIT Psychiatry & Neurology Psychiatry; ATTEND Psychiatry & Neurology Psychiatry
PROC: 3E0234Z Introduction of Serum, Toxoid and Vaccine into Muscle, Percutaneous Approach (ICD-10-PCS; principal; 2017-07-11)
DX: F25.9 Schizoaffective disorder, unspecified (principal); R45.851 Suicidal ideations; I10 Essential (primary) hypertension; Z23 Encounter for immunization; E78.5 Hyperlipidemia, unspecified; F41.9 Anxiety disorder, unspecified; G47.00 Insomnia, unspecified; K59.00 Constipation, unspecified; Z56.0 Unemployment, unspecified; Z79.899 Other long term (current) drug therapy
CPT/HCPCS: 90471; 99285; G0480

== ENCOUNTER 2017-08-26 20:03 | Emergency (ER) | payer MEDICAID ==
[~2017-08-26] VITALS: Ht 167.6 cm; Wt 68.4 kg
[2017-08-26 21:47] LABS: BASOPHILS % (AUTO) 0.8 % (0.0-2.0); EOSINOPHILS % (AUTO) 1.1 % (1.0-6.0); HEMATOCRIT 41.6 % (41-53); HEMOGLOBIN 13.9 g/dL (13.5-17.5); LYMPHOCYTES # (AUTO) 3.3 K/uL (1.0-4.8); LYMPHOCYTES % (AUTO) 37.6 % (22.0-44.0); MEAN CORPUSCULAR HEMOGLOBIN 30.3 pg (26.0-34.0); MEAN CORPUSCULAR HGB CONC 33.3 G/dL (31.0-37.0); MEAN CORPUSCULAR VOLUME 91 fL (80-100); MONOCYTES # (AUTO) 0.6 K/uL (0.1-1.0); MONOCYTES % (AUTO) 6.5 % (2.0-9.0); NEUTROPHILS # (AUTO) 4.8 K/uL (1.8-7.7); PLATELET COUNT (AUTO) 266 K/uL (150-450); RED BLOOD CELL COUNT(AUTO) 4.58 MIL/uL (4.50-5.90); RED CELL DISTRIBUTION WIDTH 14.4 % (11.5-14.5)
[2017-08-26 21:56] LABS: ANION GAP 9 mmol/L (8-16); CALCIUM, TOTAL 9.4 mg/dL (8.8-10.5); CARBON DIOXIDE 29 mmol/L (22-29); CHLORIDE 104 mmol/L (98-107); CREATININE 0.76 mg/dL (0.60-1.30); GLOMERULAR FILTR. RATE CALC > 60 mL/min (>60); GLUCOSE,RANDOM 98 mg/dL (70-110); POTASSIUM 4.3 mmol/L (3.5-5.1); SODIUM SERUM 142 mmol/L (136-145); UREA NITROGEN, BLOOD 11 mg/dL (7-18)
[2017-08-26 22:11] LABS: ALANINE AMINOTRANSFERASE 19 U/L (12-78); ALBUMIN 4.4 g/dL (3.4-5.0); ALKALINE PHOSPHATASE 47 U/L (46-116); ASPARTATE AMINOTRANSFERASE 18 U/L (15-37); BILIRUBIN,TOTAL 0.4 mg/dL (0.1-1.0); TOTAL PROTEIN, SERUM 8.5 g/dL (6.4-8.2)
[2017-08-26 22:12] LABS: VALPROIC ACID < 3 mcg/mL (50-100)
[2017-08-26 23:30] LABS: AMPHET/METH SCREEN,URINE NEGATIVE (NEGATIVE); BARBITURATE SCREEN, URINE NEGATIVE (NEGATIVE); BENZODIAZEPINES SCREEN,URINE NEGATIVE (NEGATIVE); CANNABINOID SCREEN,URINE NEGATIVE (NEGATIVE); COCAINE SCREEN,URINE NEGATIVE (NEGATIVE); METHADONE SCREEN, URINE NEGATIVE (NEGATIVE); OPIATE SCREEN,URINE NEGATIVE (NEGATIVE)
[2017-08-26 23:34] LABS: PHENCYCLIDINE SCREEN,URINE NEGATIVE (NEGATIVE)
[2017-08-27] MEDS ORDERED: HALOPERIDOL LACTATE 5 MG/ML VIAL IM ONE (02:00)
[2017-08-27] MEDS ORDERED: LORazepam 2 MG/ML VIAL IM ONE (02:00)
[2017-08-27 06:00] VITALS: BP 136/74
== END 2017-08-27 06:03 | disposition home or self-care (01) ==
LOC: EMS 20:04
DX: F20.9 Schizophrenia, unspecified (principal); I10 Essential (primary) hypertension
CPT/HCPCS: 36415; 80053; 80164; 80307; 85025; 96372; 99284; G0480; J1630; J2060

== ENCOUNTER 2017-11-04 17:13 | Inpatient (IN) | payer MEDICAID ==
[~2017-11-04] VITALS: Ht 167.6 cm; Wt 60.3 kg
[2017-11-04] MEDS ORDERED: LORazepam 2 MG TABLET PO PRN (19:00)
[2017-11-04] MEDS ORDERED: HALOPERIDOL 5 MG TABLET PO PRN (19:00)
[2017-11-04] MEDS ORDERED: ZOLPIDEM TARTRATE 10 MG TABLET PO PRN (19:00)
[2017-11-04 19:15] VITALS: BP 124/90
[2017-11-04] MEDS ORDERED: -PHARMACY VACCINE NOTE- MISC ONE (19:15)
[2017-11-04] MEDS: TraZODone HCL 150 MG TABLET PO SCH (20:55)
[2017-11-05 07:11] VITALS: BP 122/90
[2017-11-05 08:08] VITALS: BP 133/81
[2017-11-05] MEDS ORDERED: HALOPERIDOL DECANOATE 100 MG/ML VIAL IM SCH (09:00)
[2017-11-05] MEDS: DIVALPROEX SODIUM 500 MG ER TABLET PO SCH ×2 (09:08→16:42)
[2017-11-05] MEDS: HALOPERIDOL 10 MG TABLET PO SCH ×2 (09:09→16:42)
[2017-11-05] MEDS: FLUoxetine HCL 20 MG CAPSULE PO SCH (09:09)
[2017-11-05] MEDS ORDERED: IBUPROFEN 600 MG TABLET PO PRN (09:30)
[2017-11-05] MEDS ORDERED: LOPERAMIDE HCL 2 MG CAPSULE PO PRN (09:30)
[2017-11-05] MEDS ORDERED: CloNIDine HCL 0.1 MG TABLET PO PRN (09:30)
[2017-11-05] MEDS ORDERED: BACITRACIN 28.4 GM OINTMENT TP PRN (09:30)
[2017-11-05] MEDS ORDERED: PETROLATUM,WHITE 71 GM JELLY TP PRN (09:30)
[2017-11-05] MEDS ORDERED: MAGNESIUM HYDROXIDE SUSPENSION 30 ML UDCUP PO PRN (09:30)
[2017-11-05] MEDS ORDERED: ONDANSETRON HCL 4 MG TABLET PO PRN (09:30)
[2017-11-05] MEDS ORDERED: MAG HYDROX/AL HYDROX/SIMETH ES 30 ML SUSPENSION UDCUP PO PRN (09:30)
[2017-11-05] MEDS ORDERED: ACETAMINOPHEN 325 MG TABLET PO PRN (09:30)
[2017-11-05] MEDS ORDERED: BENZOCAINE/MENTHOL LOZENGE MM PRN (09:30)
[2017-11-05] MEDS ORDERED: ALBUTEROL SULFATE HFA 90 MCG/PUFF 8 GM INHALER IH PRN (09:30)
[2017-11-05 16:25] VITALS: BP 119/81
[2017-11-05] MEDS: LOVASTATIN 20 MG TABLET PO SCH (16:42)
[2017-11-05] MEDS: TraZODone HCL 150 MG TABLET PO SCH (20:45)
[2017-11-06 06:27] VITALS: BP 120/81
[2017-11-06 08:12] VITALS: BP 124/76
[2017-11-06] MEDS: FLUoxetine HCL 20 MG CAPSULE PO SCH (08:47)
[2017-11-06] MEDS: DIVALPROEX SODIUM 500 MG ER TABLET PO SCH ×2 (08:48→16:59)
[2017-11-06] MEDS: HALOPERIDOL 10 MG TABLET PO SCH ×2 (08:48→16:59)
[2017-11-06 16:14] VITALS: BP 115/68
[2017-11-06] MEDS: LOVASTATIN 20 MG TABLET PO SCH (16:59)
[2017-11-06] MEDS: TraZODone HCL 150 MG TABLET PO SCH (20:30)
[2017-11-07 06:04] VITALS: BP 121/72
[2017-11-07] MEDS: DIVALPROEX SODIUM 500 MG ER TABLET PO SCH ×2 (08:33→16:52)
[2017-11-07] MEDS: FLUoxetine HCL 20 MG CAPSULE PO SCH (08:33)
[2017-11-07] MEDS: HALOPERIDOL 10 MG TABLET PO SCH ×2 (08:33→16:52)
[2017-11-07 09:01] VITALS: BP 123/79
[2017-11-07 16:51] VITALS: BP 117/63
[2017-11-07] MEDS: LOVASTATIN 20 MG TABLET PO SCH (16:52)
[2017-11-07] MEDS: TraZODone HCL 150 MG TABLET PO SCH (20:38)
[2017-11-08 01:08] VITALS: BP 120/81
[2017-11-08 08:30] VITALS: BP 116/64
[2017-11-08] MEDS: DIVALPROEX SODIUM 500 MG ER TABLET PO SCH ×2 (10:03→16:37)
[2017-11-08] MEDS: HALOPERIDOL 10 MG TABLET PO SCH ×2 (10:03→16:37)
[2017-11-08] MEDS: FLUoxetine HCL 20 MG CAPSULE PO SCH (10:03)
[2017-11-08] MEDS: LOVASTATIN 20 MG TABLET PO SCH (16:37)
[2017-11-08 17:35] VITALS: BP 110/64
[2017-11-08] MEDS: TraZODone HCL 150 MG TABLET PO SCH (20:28)
[2017-11-09 07:00] VITALS: BP 116/77
[2017-11-09 08:11] VITALS: BP 120/79
[2017-11-09] MEDS: FLUoxetine HCL 20 MG CAPSULE PO SCH (08:25)
[2017-11-09] MEDS: DIVALPROEX SODIUM 500 MG ER TABLET PO SCH ×2 (08:25→16:15)
[2017-11-09] MEDS: HALOPERIDOL 10 MG TABLET PO SCH ×2 (08:25→16:15)
[2017-11-09 08:59] LABS: BASOPHILS % (AUTO) 1.1 % (0.0-2.0); EOSINOPHILS % (AUTO) 1.6 % (1.0-6.0); HEMATOCRIT 39.2 % (41-53); HEMOGLOBIN 13.4 g/dL (13.5-17.5); LYMPHOCYTES # (AUTO) 2.1 K/uL (1.0-4.8); LYMPHOCYTES % (AUTO) 47.7 % (22.0-44.0); MEAN CORPUSCULAR HEMOGLOBIN 30.8 pg (26.0-34.0); MEAN CORPUSCULAR HGB CONC 34.2 G/dL (31.0-37.0); MEAN CORPUSCULAR VOLUME 90 fL (80-100); MONOCYTES # (AUTO) 0.3 K/uL (0.1-1.0); MONOCYTES % (AUTO) 6.7 % (2.0-9.0); NEUTROPHILS # (AUTO) 1.9 K/uL (1.8-7.7); NEUTROPHILS % (AUTO) 42.9 % (40.0-70.0); PLATELET COUNT (AUTO) 216 K/uL (150-450); RED BLOOD CELL COUNT(AUTO) 4.35 MIL/uL (4.50-5.90); RED CELL DISTRIBUTION WIDTH 13.3 % (11.5-14.5)
[2017-11-09 09:21] LABS: HEMOGLOBIN A1C 6.2 % (4.5-6.2)
[2017-11-09 09:44] LABS: ALANINE AMINOTRANSFERASE 28 U/L (12-78); ALBUMIN 3.2 g/dL (3.4-5.0); ALKALINE PHOSPHATASE 44 U/L (46-116); ANION GAP 3 mmol/L (8-16); ASPARTATE AMINOTRANSFERASE 18 U/L (15-37); BILIRUBIN,TOTAL 0.2 mg/dL (0.1-1.0); CALCIUM, TOTAL 8.4 mg/dL (8.8-10.5); CARBON DIOXIDE 34 mmol/L (22-29); CHLORIDE 104 mmol/L (98-107); CHOL/HDL RATIO 3.1 (4.2-7.3); CHOLESTEROL 135 mg/dL (131-200); CREATININE 0.84 mg/dL (0.60-1.30); GLOMERULAR FILTR. RATE CALC > 60 mL/min (>60); GLUCOSE,RANDOM 80 mg/dL (70-110); HDL CHOLESTEROL 44 mg/dL (40-60); LDL CHOL (CALC.) 81 mg/dL (0-130); POTASSIUM 4.6 mmol/L (3.5-5.1); SODIUM SERUM 141 mmol/L (136-145); THYROID STIMULATING HORMONE 0.21 uIU/mL (0.36-3.74); TRIGLYCERIDES 51 mg/dL (15-150); UREA NITROGEN, BLOOD 14 mg/dL (7-18)
[2017-11-09] MEDS: LOVASTATIN 20 MG TABLET PO SCH (16:15)
[2017-11-09] MEDS: TraZODone HCL 150 MG TABLET PO SCH (20:21)
[2017-11-10] VITALS: BP 100/64
[2017-11-10 08:12] VITALS: BP 125/78
[2017-11-10] MEDS: HALOPERIDOL 10 MG TABLET PO SCH ×2 (08:31→16:30)
[2017-11-10] MEDS: FLUoxetine HCL 20 MG CAPSULE PO SCH (08:31)
[2017-11-10] MEDS: DIVALPROEX SODIUM 500 MG ER TABLET PO SCH ×2 (08:31→16:30)
[2017-11-10 16:08] VITALS: BP 118/69
[2017-11-10] MEDS: LOVASTATIN 20 MG TABLET PO SCH (16:31)
[2017-11-10] MEDS: TraZODone HCL 150 MG TABLET PO SCH (20:48)
[2017-11-11 06:29] VITALS: BP 121/68
[2017-11-11 08:41] VITALS: BP 112/67
[2017-11-11] MEDS: DIVALPROEX SODIUM 500 MG ER TABLET PO SCH ×2 (09:19→16:28)
[2017-11-11] MEDS: HALOPERIDOL 10 MG TABLET PO SCH ×2 (09:19→16:28)
[2017-11-11] MEDS: FLUoxetine HCL 20 MG CAPSULE PO SCH (09:19)
[2017-11-11 16:00] VITALS: BP 121/68
[2017-11-11] MEDS: LOVASTATIN 20 MG TABLET PO SCH (16:28)
[2017-11-11] MEDS: TraZODone HCL 150 MG TABLET PO SCH (20:12)
[2017-11-12 03:35] VITALS: BP 117/83
[2017-11-12] MEDS: FLUoxetine HCL 20 MG CAPSULE PO SCH (08:49)
[2017-11-12] MEDS: DIVALPROEX SODIUM 500 MG ER TABLET PO SCH ×2 (08:49→16:24)
[2017-11-12] MEDS: HALOPERIDOL 10 MG TABLET PO SCH ×2 (08:49→16:24)
[2017-11-12 09:08] VITALS: BP 111/67
[2017-11-12] MEDS: CHOLECALCIFEROL (VIT D3) 1,000 UNITS TABLET PO SCH (09:30)
[2017-11-12 16:00] VITALS: BP 110/62
[2017-11-12] MEDS: LOVASTATIN 20 MG TABLET PO SCH (16:25)
[2017-11-12] MEDS: TraZODone HCL 150 MG TABLET PO SCH (20:30)
[2017-11-13] VITALS: BP 105/60
[2017-11-13 08:50] VITALS: BP 111/60
[2017-11-13] MEDS: CHOLECALCIFEROL (VIT D3) 1,000 UNITS TABLET PO SCH (09:25)
[2017-11-13] MEDS: HALOPERIDOL 10 MG TABLET PO SCH ×2 (09:25→16:32)
[2017-11-13] MEDS: DIVALPROEX SODIUM 500 MG ER TABLET PO SCH ×2 (09:25→16:32)
[2017-11-13] MEDS: FLUoxetine HCL 20 MG CAPSULE PO SCH (09:25)
[2017-11-13 16:45] VITALS: BP 112/60
[2017-11-13] MEDS: LOVASTATIN 20 MG TABLET PO SCH (16:48)
[2017-11-13] MEDS: TraZODone HCL 150 MG TABLET PO SCH (20:30)
[2017-11-14 01:49] VITALS: BP 100/63
[2017-11-14 08:57] VITALS: BP 118/63
[2017-11-14] MEDS: CHOLECALCIFEROL (VIT D3) 1,000 UNITS TABLET PO SCH (09:47)
[2017-11-14] MEDS: HALOPERIDOL 10 MG TABLET PO SCH ×2 (09:47→16:42)
[2017-11-14] MEDS: DIVALPROEX SODIUM 500 MG ER TABLET PO SCH ×2 (09:47→16:42)
[2017-11-14] MEDS: FLUoxetine HCL 20 MG CAPSULE PO SCH (09:47)
[2017-11-14 16:15] VITALS: BP 112/63
[2017-11-14] MEDS: LOVASTATIN 20 MG TABLET PO SCH (16:42)
[2017-11-14] MEDS: TraZODone HCL 150 MG TABLET PO SCH (20:54)
[2017-11-15] MEDS: HALOPERIDOL 10 MG TABLET PO SCH (08:13)
[2017-11-15] MEDS: DIVALPROEX SODIUM 500 MG ER TABLET PO SCH (08:13)
[2017-11-15] MEDS: FLUoxetine HCL 20 MG CAPSULE PO SCH (08:13)
[2017-11-15] MEDS: CHOLECALCIFEROL (VIT D3) 1,000 UNITS TABLET PO SCH (08:13)
[2017-11-15 08:36] VITALS: BP 118/74
[2017-11-15] MEDS ORDERED: HALO100V4 IM (10:40)
[2017-11-15] MEDS ORDERED: HALO5TAB2 PO (10:40)
[2017-11-15] MEDS ORDERED: VITAD1000 PO (10:40)
[2017-11-15] MEDS ORDERED: DIVA500T35 PO (10:40)
== END 2017-11-15 13:30 | disposition home or self-care (01) | DRG 750 ==
LOC: B2S 18:59
PROVIDERS: ADMIT Psychiatry & Neurology Psychiatry; ATTEND Psychiatry & Neurology Psychiatry
DX: F20.0 Paranoid schizophrenia (principal); Z91.19 Patient's noncompliance with other medical treatment and regimen; I10 Essential (primary) hypertension; E78.5 Hyperlipidemia, unspecified; R45.87 Impulsiveness; G47.00 Insomnia, unspecified; K59.00 Constipation, unspecified; F41.9 Anxiety disorder, unspecified; Z59.0 Homelessness; Z79.899 Other long term (current) drug therapy
CPT/HCPCS: 82306; 83036; 84439; 84443; J1631

== ENCOUNTER 2017-12-10 10:03 | Inpatient (IN) | payer MEDICAID ==
[~2017-12-10] VITALS: Ht 167.6 cm; Wt 62.6 kg
[~2017-12-10 10:03] MED LIST changes: -CLON-570 PO; +DIVA-78 PO; +HALO100V4 IM; +HALO5TAB2 PO; -VALP250 PO; +VITAD1000 PO
[2017-12-10] MEDS ORDERED: HALOPERIDOL 5 MG TABLET PO PRN (12:15)
[2017-12-10] MEDS ORDERED: ZOLPIDEM TARTRATE 10 MG TABLET PO PRN (12:15)
[2017-12-10 13:00] LABS: AMPHET/METH SCREEN,URINE NEGATIVE (NEGATIVE); BARBITURATE SCREEN, URINE NEGATIVE (NEGATIVE); BENZODIAZEPINES SCREEN,URINE NEGATIVE (NEGATIVE); CANNABINOID SCREEN,URINE NEGATIVE (NEGATIVE); COCAINE SCREEN,URINE NEGATIVE (NEGATIVE); METHADONE SCREEN, URINE NEGATIVE (NEGATIVE); OPIATE SCREEN,URINE NEGATIVE (NEGATIVE)
[2017-12-10 13:02] LABS: PHENCYCLIDINE SCREEN,URINE NEGATIVE (NEGATIVE)
[2017-12-10 13:08] LABS: APPEARANCE,URINE CLEAR (CLEAR); BILIRUBIN,URINE NEGATIVE (NEGATIVE); GLUCOSE, URINE (UA) NEGATIVE (NEGATIVE); KETONES,URINE NEGATIVE (NEGATIVE); LEUKOCYTE ESTERASE ,URINE NEGATIVE (NEGATIVE); NITRATE,URINE NEGATIVE (NEGATIVE); OCCULT BLOOD,URINE NEGATIVE (NEGATIVE); PROTEIN,URINE NEGATIVE (NEGATIVE); UROBILINOGEN,URINE 0.2 mg/dL (<=1.0)
[2017-12-10] MEDS ORDERED: DiphenhydrAMINE HCL 25 MG CAPSULE PO ONE (14:00)
[2017-12-10] MEDS ORDERED: LORazepam 2 MG TABLET PO ONE (14:00)
[2017-12-10] MEDS ORDERED: HALOPERIDOL 5 MG TABLET PO ONE (14:00)
[2017-12-10 14:53] LABS: BASOPHILS % (AUTO) 1.1 % (0.0-2.0); EOSINOPHILS % (AUTO) 0.8 % (1.0-6.0); HEMATOCRIT 35.4 % (41-53); HEMOGLOBIN 12.2 g/dL (13.5-17.5); LYMPHOCYTES # (AUTO) 2.4 K/uL (1.0-4.8); LYMPHOCYTES % (AUTO) 40.6 % (22.0-44.0); MEAN CORPUSCULAR HEMOGLOBIN 31.1 pg (26.0-34.0); MEAN CORPUSCULAR HGB CONC 34.4 G/dL (31.0-37.0); MEAN CORPUSCULAR VOLUME 90 fL (80-100); MONOCYTES # (AUTO) 0.5 K/uL (0.1-1.0); MONOCYTES % (AUTO) 7.8 % (2.0-9.0); NEUTROPHILS # (AUTO) 2.9 K/uL (1.8-7.7); NEUTROPHILS % (AUTO) 49.7 % (40.0-70.0); PLATELET COUNT (AUTO) 234 K/uL (150-450); RED BLOOD CELL COUNT(AUTO) 3.92 MIL/uL (4.50-5.90); RED CELL DISTRIBUTION WIDTH 14.6 % (11.5-14.5)
[2017-12-10 14:55] LABS: ANION GAP 9 mmol/L (8-16); CALCIUM, TOTAL 8.7 mg/dL (8.8-10.5); CARBON DIOXIDE 29 mmol/L (22-29); CHLORIDE 104 mmol/L (98-107); CREATININE 0.79 mg/dL (0.60-1.30); GLOMERULAR FILTR. RATE CALC > 60 mL/min (>60); GLUCOSE,RANDOM 87 mg/dL (70-110); POTASSIUM 4.7 mmol/L (3.5-5.1); SODIUM SERUM 142 mmol/L (136-145); UREA NITROGEN, BLOOD 8 mg/dL (7-18)
[2017-12-10 15:00] LABS: ALANINE AMINOTRANSFERASE 29 U/L (12-78); ALBUMIN 3.5 g/dL (3.4-5.0); ALKALINE PHOSPHATASE 46 U/L (46-116); ASPARTATE AMINOTRANSFERASE 27 U/L (15-37); BILIRUBIN,TOTAL 0.5 mg/dL (0.1-1.0)
[2017-12-10] MEDS: LORazepam 2 MG TABLET PO PRN (17:05)
[2017-12-10] MEDS: HALOPERIDOL 10 MG TABLET PO SCH (17:05)
[2017-12-10] MEDS: DIVALPROEX SODIUM 500 MG DR TABLET PO SCH (17:05)
[2017-12-10 17:06] VITALS: BP 148/98
[2017-12-10] MEDS ORDERED: CloNIDine HCL 0.1 MG TABLET PO PRN (17:45)
[2017-12-10] MEDS ORDERED: PETROLATUM,WHITE 71 GM JELLY TP PRN (17:45)
[2017-12-10] MEDS ORDERED: MAG HYDROX/AL HYDROX/SIMETH ES 30 ML SUSPENSION UDCUP PO PRN (17:45)
[2017-12-10] MEDS ORDERED: ACETAMINOPHEN 325 MG TABLET PO PRN (17:45)
[2017-12-10] MEDS ORDERED: ALBUTEROL SULFATE HFA 90 MCG/PUFF 8 GM INHALER IH PRN (17:45)
[2017-12-10] MEDS ORDERED: BENZOCAINE/MENTHOL LOZENGE MM PRN (17:45)
[2017-12-10] MEDS ORDERED: LOPERAMIDE HCL 2 MG CAPSULE PO PRN (17:45)
[2017-12-10] MEDS ORDERED: MAGNESIUM HYDROXIDE SUSPENSION 30 ML UDCUP PO PRN (17:45)
[2017-12-10] MEDS ORDERED: ONDANSETRON HCL 4 MG TABLET PO PRN (17:45)
[2017-12-10] MEDS ORDERED: BACITRACIN 28.4 GM OINTMENT TP PRN (17:45)
[2017-12-10] MEDS ORDERED: IBUPROFEN 600 MG TABLET PO PRN (17:45)
[2017-12-10] MEDS: TraZODone HCL 150 MG TABLET PO SCH (21:07)
[2017-12-11 06:12] VITALS: BP 138/93
[2017-12-11 08:08] VITALS: BP 136/91
[2017-12-11 08:47] LABS: EOSINOPHILS % (AUTO) 1.6 % (1.0-6.0); HEMATOCRIT 38.7 % (41-53); HEMOGLOBIN 13.3 g/dL (13.5-17.5); LYMPHOCYTES # (AUTO) 2.2 K/uL (1.0-4.8); LYMPHOCYTES % (AUTO) 43.6 % (22.0-44.0); MEAN CORPUSCULAR HEMOGLOBIN 31.1 pg (26.0-34.0); MEAN CORPUSCULAR HGB CONC 34.3 G/dL (31.0-37.0); MEAN CORPUSCULAR VOLUME 91 fL (80-100); MONOCYTES # (AUTO) 0.4 K/uL (0.1-1.0); NEUTROPHILS # (AUTO) 2.3 K/uL (1.8-7.7); NEUTROPHILS % (AUTO) 45.8 % (40.0-70.0); PLATELET COUNT (AUTO) 262 K/uL (150-450); RED BLOOD CELL COUNT(AUTO) 4.26 MIL/uL (4.50-5.90); RED CELL DISTRIBUTION WIDTH 14.7 % (11.5-14.5)
[2017-12-11] MEDS: OMEPRAZOLE 20 MG CAPSULE PO SCH (09:17)
[2017-12-11] MEDS: NICOTINE 21 MG/24 HOUR PATCH TD SCH (09:17)
[2017-12-11] MEDS: HALOPERIDOL 10 MG TABLET PO SCH ×2 (09:17→16:27)
[2017-12-11] MEDS: DIVALPROEX SODIUM 500 MG DR TABLET PO SCH ×2 (09:17→16:27)
[2017-12-11] MEDS: DOCUSATE SODIUM 100 MG CAPSULE PO SCH (09:17)
[2017-12-11] MEDS: FLUoxetine HCL 20 MG CAPSULE PO SCH (09:17)
[2017-12-11] MEDS: CHOLECALCIFEROL (VIT D3) 1,000 UNITS TABLET PO SCH (09:17)
[2017-12-11 09:30] LABS: ALANINE AMINOTRANSFERASE 27 U/L (12-78); ALBUMIN 3.8 g/dL (3.4-5.0); ALKALINE PHOSPHATASE 46 U/L (46-116); ANION GAP 5 mmol/L (8-16); ASPARTATE AMINOTRANSFERASE 22 U/L (15-37); BILIRUBIN,TOTAL 0.6 mg/dL (0.1-1.0); CALCIUM, TOTAL 8.5 mg/dL (8.8-10.5); CARBON DIOXIDE 31 mmol/L (22-29); CHLORIDE 102 mmol/L (98-107); CHOL/HDL RATIO 2.4 (4.2-7.3); CHOLESTEROL 164 mg/dL (131-200); CREATININE 0.78 mg/dL (0.60-1.30); GLOMERULAR FILTR. RATE CALC > 60 mL/min (>60); GLUCOSE,RANDOM 76 mg/dL (70-110); HDL CHOLESTEROL 68 mg/dL (40-60); LDL CHOL (CALC.) 88 mg/dL (0-130); SODIUM SERUM 138 mmol/L (136-145); THYROID STIMULATING HORMONE 0.59 uIU/mL (0.36-3.74); TOTAL PROTEIN, SERUM 7.8 g/dL (6.4-8.2); TRIGLYCERIDES 39 mg/dL (15-150); UREA NITROGEN, BLOOD 9 mg/dL (7-18); VALPROIC ACID 42 mcg/mL (50-100)
[2017-12-11 10:11] LABS: FREE T4 (FREE THYROXINE) 1.17 ng/dL (0.76-1.46)
[2017-12-11 16:15] VITALS: BP 123/69
[2017-12-11] MEDS: LOVASTATIN 20 MG TABLET PO SCH (16:27)
[2017-12-11] MEDS: LORazepam 2 MG TABLET PO PRN (16:27)
[2017-12-11] MEDS ORDERED: HALO10 PO (17:27)
[2017-12-11] MEDS: TraZODone HCL 150 MG TABLET PO SCH (20:50)
[2017-12-12 06:29] VITALS: BP 138/81
[2017-12-12 08:11] VITALS: BP 132/78
[2017-12-12] MEDS: HALOPERIDOL 10 MG TABLET PO SCH ×2 (08:57→16:34)
[2017-12-12] MEDS: DOCUSATE SODIUM 100 MG CAPSULE PO SCH (08:57)
[2017-12-12] MEDS: DIVALPROEX SODIUM 500 MG ER TABLET PO SCH ×2 (08:57→16:34)
[2017-12-12] MEDS: OMEPRAZOLE 20 MG CAPSULE PO SCH (08:58)
[2017-12-12] MEDS: CHOLECALCIFEROL (VIT D3) 1,000 UNITS TABLET PO SCH (08:58)
[2017-12-12] MEDS: LORazepam 2 MG TABLET PO PRN ×2 (08:58→16:34)
[2017-12-12] MEDS: NICOTINE 21 MG/24 HOUR PATCH TD SCH (08:58)
[2017-12-12] MEDS: FLUoxetine HCL 20 MG CAPSULE PO SCH (08:58)
[2017-12-12 16:00] VITALS: BP 127/77
[2017-12-12] MEDS: LOVASTATIN 20 MG TABLET PO SCH (16:34)
[2017-12-12] MEDS: TraZODone HCL 150 MG TABLET PO SCH (21:07)
[2017-12-13 05:00] VITALS: BP 122/72
[2017-12-13 08:03] VITALS: BP 120/62
[2017-12-13] MEDS: OMEPRAZOLE 20 MG CAPSULE PO SCH (08:21)
[2017-12-13] MEDS: NICOTINE 21 MG/24 HOUR PATCH TD SCH (08:21)
[2017-12-13] MEDS: DOCUSATE SODIUM 100 MG CAPSULE PO SCH (08:21)
[2017-12-13] MEDS: DIVALPROEX SODIUM 500 MG ER TABLET PO SCH ×2 (08:21→16:39)
[2017-12-13] MEDS: HALOPERIDOL 10 MG TABLET PO SCH ×2 (08:22→16:39)
[2017-12-13] MEDS: FLUoxetine HCL 20 MG CAPSULE PO SCH (08:22)
[2017-12-13] MEDS: LORazepam 2 MG TABLET PO PRN ×2 (08:22→16:39)
[2017-12-13] MEDS: CHOLECALCIFEROL (VIT D3) 1,000 UNITS TABLET PO SCH (08:22)
[2017-12-13] MEDS ORDERED: HALOPERIDOL DECANOATE 100 MG/ML VIAL IM SCH (09:00)
[2017-12-13 16:32] VITALS: BP 126/78
[2017-12-13] MEDS: LOVASTATIN 20 MG TABLET PO SCH (16:39)
[2017-12-13] MEDS: TraZODone HCL 150 MG TABLET PO SCH (21:45)
[2017-12-14 05:51] VITALS: BP 122/72
[2017-12-14 08:06] VITALS: BP 124/70
[2017-12-14] MEDS: DOCUSATE SODIUM 100 MG CAPSULE PO SCH (09:49)
[2017-12-14] MEDS: FLUoxetine HCL 20 MG CAPSULE PO SCH (09:49)
[2017-12-14] MEDS: OMEPRAZOLE 20 MG CAPSULE PO SCH (09:49)
[2017-12-14] MEDS: CHOLECALCIFEROL (VIT D3) 1,000 UNITS TABLET PO SCH (09:49)
[2017-12-14] MEDS: DIVALPROEX SODIUM 500 MG ER TABLET PO SCH ×2 (09:49→16:31)
[2017-12-14] MEDS: HALOPERIDOL 10 MG TABLET PO SCH ×2 (09:50→16:31)
[2017-12-14] MEDS: NICOTINE 21 MG/24 HOUR PATCH TD SCH (09:50)
[2017-12-14 16:04] VITALS: BP 112/68
[2017-12-14] MEDS: LOVASTATIN 20 MG TABLET PO SCH (16:31)
[2017-12-14] MEDS: LORazepam 2 MG TABLET PO PRN (16:31)
[2017-12-14] MEDS: TraZODone HCL 150 MG TABLET PO SCH (20:21)
[2017-12-15 06:17] VITALS: BP 114/72
[2017-12-15 08:25] VITALS: BP 117/57
[2017-12-15] MEDS: FLUoxetine HCL 20 MG CAPSULE PO SCH (08:25)
[2017-12-15] MEDS: DIVALPROEX SODIUM 500 MG ER TABLET PO SCH ×2 (08:25→16:56)
[2017-12-15] MEDS: CHOLECALCIFEROL (VIT D3) 1,000 UNITS TABLET PO SCH (08:25)
[2017-12-15] MEDS: LORazepam 2 MG TABLET PO PRN ×2 (08:25→16:56)
[2017-12-15] MEDS: DOCUSATE SODIUM 100 MG CAPSULE PO SCH (08:25)
[2017-12-15] MEDS: HALOPERIDOL 10 MG TABLET PO SCH ×2 (08:25→16:56)
[2017-12-15] MEDS: OMEPRAZOLE 20 MG CAPSULE PO SCH (08:25)
[2017-12-15] MEDS: NICOTINE 21 MG/24 HOUR PATCH TD SCH (08:26)
[2017-12-15 16:00] VITALS: BP 116/68
[2017-12-15] MEDS: LOVASTATIN 20 MG TABLET PO SCH (17:25)
[2017-12-15] MEDS: TraZODone HCL 150 MG TABLET PO SCH (20:22)
[2017-12-16 01:51] VITALS: BP 111/67
[2017-12-16 08:10] VITALS: BP 117/78
[2017-12-16] MEDS: DIVALPROEX SODIUM 500 MG ER TABLET PO SCH ×2 (08:35→16:23)
[2017-12-16] MEDS: CHOLECALCIFEROL (VIT D3) 1,000 UNITS TABLET PO SCH (08:35)
[2017-12-16] MEDS: NICOTINE 21 MG/24 HOUR PATCH TD SCH (08:35)
[2017-12-16] MEDS: OMEPRAZOLE 20 MG CAPSULE PO SCH (08:35)
[2017-12-16] MEDS: DOCUSATE SODIUM 100 MG CAPSULE PO SCH (08:35)
[2017-12-16] MEDS: HALOPERIDOL 10 MG TABLET PO SCH ×2 (08:36→16:23)
[2017-12-16] MEDS: FLUoxetine HCL 20 MG CAPSULE PO SCH (08:36)
[2017-12-16] MEDS: LORazepam 2 MG TABLET PO PRN ×2 (08:36→16:23)
[2017-12-16 16:00] VITALS: BP 113/65
[2017-12-16] MEDS: LOVASTATIN 20 MG TABLET PO SCH (16:23)
[2017-12-16] MEDS: TraZODone HCL 150 MG TABLET PO SCH (20:19)
[2017-12-17 06:17] VITALS: BP 128/79
[2017-12-17] MEDS: LORazepam 2 MG TABLET PO PRN ×2 (08:05→17:03)
[2017-12-17] MEDS: CHOLECALCIFEROL (VIT D3) 1,000 UNITS TABLET PO SCH (08:05)
[2017-12-17] MEDS: FLUoxetine HCL 20 MG CAPSULE PO SCH (08:05)
[2017-12-17] MEDS: NICOTINE 21 MG/24 HOUR PATCH TD SCH (08:05)
[2017-12-17] MEDS: DIVALPROEX SODIUM 500 MG ER TABLET PO SCH ×2 (08:06→17:03)
[2017-12-17] MEDS: HALOPERIDOL 10 MG TABLET PO SCH ×2 (08:06→17:03)
[2017-12-17] MEDS: DOCUSATE SODIUM 100 MG CAPSULE PO SCH (08:06)
[2017-12-17] MEDS: OMEPRAZOLE 20 MG CAPSULE PO SCH (08:06)
[2017-12-17 10:25] VITALS: BP 124/72
[2017-12-17 16:00] VITALS: BP 111/71
[2017-12-17] MEDS: LOVASTATIN 20 MG TABLET PO SCH (17:03)
[2017-12-17] MEDS: TraZODone HCL 150 MG TABLET PO SCH (21:07)
[2017-12-18 05:55] VITALS: BP 119/74
[2017-12-18 09:08] VITALS: BP 139/77
[2017-12-18] MEDS: NICOTINE 21 MG/24 HOUR PATCH TD SCH (10:14)
[2017-12-18] MEDS: DOCUSATE SODIUM 100 MG CAPSULE PO SCH (10:15)
[2017-12-18] MEDS: DIVALPROEX SODIUM 500 MG ER TABLET PO SCH ×2 (10:15→17:06)
[2017-12-18] MEDS: OMEPRAZOLE 20 MG CAPSULE PO SCH (10:15)
[2017-12-18] MEDS: CHOLECALCIFEROL (VIT D3) 1,000 UNITS TABLET PO SCH (10:15)
[2017-12-18] MEDS: HALOPERIDOL 10 MG TABLET PO SCH ×2 (10:15→17:06)
[2017-12-18] MEDS: FLUoxetine HCL 20 MG CAPSULE PO SCH (10:15)
[2017-12-18 16:41] VITALS: BP 130/80
[2017-12-18] MEDS: LORazepam 2 MG TABLET PO PRN (17:06)
[2017-12-18] MEDS: LOVASTATIN 20 MG TABLET PO SCH (17:06)
[2017-12-18] MEDS: TraZODone HCL 150 MG TABLET PO SCH (20:25)
[2017-12-19 00:09] VITALS: BP 100/61
[2017-12-19 08:14] VITALS: BP 123/70
[2017-12-19] MEDS: DIVALPROEX SODIUM 500 MG ER TABLET PO SCH (08:27)
[2017-12-19] MEDS: DOCUSATE SODIUM 100 MG CAPSULE PO SCH (08:27)
[2017-12-19] MEDS: CHOLECALCIFEROL (VIT D3) 1,000 UNITS TABLET PO SCH (08:27)
[2017-12-19] MEDS: HALOPERIDOL 10 MG TABLET PO SCH (08:27)
[2017-12-19] MEDS: FLUoxetine HCL 20 MG CAPSULE PO SCH (08:27)
[2017-12-19] MEDS: NICOTINE 21 MG/24 HOUR PATCH TD SCH (08:30)
[2017-12-19] MEDS: OMEPRAZOLE 20 MG CAPSULE PO SCH (08:43)
== END 2017-12-19 17:13 | disposition home or self-care (01) | DRG 750 ==
LOC: EMS 10:06 → B3A 15:41
PROVIDERS: ADMIT Psychiatry & Neurology Psychiatry; ATTEND Psychiatry & Neurology Psychiatry
DX: F20.0 Paranoid schizophrenia (principal); E83.51 Hypocalcemia; I10 Essential (primary) hypertension; E55.9 Vitamin D deficiency, unspecified; D64.9 Anemia, unspecified; E78.00 Pure hypercholesterolemia, unspecified; E78.5 Hyperlipidemia, unspecified; G47.00 Insomnia, unspecified; K59.00 Constipation, unspecified; Z59.0 Homelessness; Z91.14 Patient's other noncompliance with medication regimen
CPT/HCPCS: 84439; 84443; 87081; 99285; G0480; J1631

== ENCOUNTER 2023-02-28 12:12 | Inpatient (IN) | payer MEDICARE, MEDICAID ==
[~2023-02-28] VITALS: Ht 167.6 cm; Wt 71.8 kg
[~2023-02-28 12:12] MED LIST changes: +CHOL100018 PO; +DIVA-112 PO; -DIVA-78 PO; +FLUO-177 PO; -FLUO-191 PO; -HALO100V4 IM; +HALO10TA21 PO; -HALO5TAB2 PO; -LOVA20 PO; +LOVA20TA73 PO; -TRAZ150 PO; +TRAZ150T80 PO; -VITAD1000 PO
[2023-02-28 13:30] LABS: ALCOHOL, URINE DRUG SCREEN NEGATIVE (NEGATIVE); AMPHET/METH SCREEN,URINE NEGATIVE (NEGATIVE); BARBITURATE SCREEN, URINE NEGATIVE (NEGATIVE); BENZODIAZEPINES SCREEN,URINE NEGATIVE (NEGATIVE); CANNABINOID SCREEN,URINE NEGATIVE (NEGATIVE); COCAINE SCREEN,URINE NEGATIVE (NEGATIVE); METHADONE SCREEN, URINE NEGATIVE (NEGATIVE); OPIATE SCREEN,URINE NEGATIVE (NEGATIVE); PHENCYCLIDINE SCREEN,URINE NEGATIVE (NEGATIVE)
[2023-02-28 13:50] LABS: BASOPHILS % (AUTO) 0.9 % (0.0-2.0); EOSINOPHILS % (AUTO) 0.2 % (1.0-6.0); HEMOGLOBIN 13.1 g/dL (13.5-17.5); LYMPHOCYTES # (AUTO) 1.7 K/uL (1.0-4.8); LYMPHOCYTES % (AUTO) 22.4 % (22.0-44.0); MEAN CORPUSCULAR HEMOGLOBIN 31.4 pg (26.0-34.0); MEAN CORPUSCULAR HGB CONC 33.6 G/dL (31.0-37.0); MEAN CORPUSCULAR VOLUME 94 fL (80-100); MONOCYTES # (AUTO) 0.7 K/uL (0.1-1.0); MONOCYTES % (AUTO) 9.7 % (2.0-9.0); NEUTROPHILS % (AUTO) 66.8 % (40.0-70.0); PLATELET COUNT (AUTO) 252 K/uL (150-450); RED BLOOD CELL COUNT(AUTO) 4.17 MIL/uL (4.50-5.90); RED CELL DISTRIBUTION WIDTH 14.2 % (11.5-14.5); WHITE BLOOD COUNT (AUTO) 7.6 K/uL (4.5-11.0)
[2023-02-28 14:12] LABS: ALCOHOL, BLOOD (SERUM) < 3 mg/dL (0-10)
[2023-02-28 14:22] LABS: ANION GAP 8 mmol/L (8-16); CALCIUM, TOTAL 8.9 mg/dL (8.8-10.5); CARBON DIOXIDE 27 mmol/L (22-29); CHLORIDE 102 mmol/L (98-107); GLOMERULAR FILTR. RATE CALC > 60 mL/min (>60); GLUCOSE,RANDOM 91 mg/dL (70-110); POTASSIUM 4.5 mmol/L (3.5-5.1); SODIUM SERUM 137 mmol/L (136-145); UREA NITROGEN, BLOOD 9 mg/dL (7-18)
[2023-02-28 14:29] LABS: ALANINE AMINOTRANSFERASE 27 U/L (12-78); ALBUMIN 3.8 g/dL (3.4-5.0); ALKALINE PHOSPHATASE 54 U/L (46-116); ASPARTATE AMINOTRANSFERASE 18 U/L (15-37); BILIRUBIN,TOTAL 0.4 mg/dL (0.1-1.0); TOTAL PROTEIN, SERUM 7.7 g/dL (6.4-8.2)
[2023-02-28 14:33] LABS: VALPROIC ACID < 3 mcg/mL (50-100)
[2023-02-28 14:33] LABS: COVID AG,FIA SOURCE NASAL SWAB
[2023-02-28 14:54] LABS: SARS-COV2 (COVID) ANTIGEN,FIA Negative (Negative)
[2023-02-28] MEDS: LORazepam 2 MG TABLET PO PRN (21:11)
[2023-02-28] MEDS: ZOLPIDEM TARTRATE 10 MG TABLET PO PRN (21:11)
[2023-03-01 04:26] VITALS: BP 122/82; PULSE 69; RESP 16; TEMP 97.8; O2SAT 97
[2023-03-01] MEDS: LORazepam 2 MG TABLET PO PRN ×2 (06:08→20:47)
[2023-03-01 08:32] VITALS: BP 116/74; PULSE 83; RESP 17; TEMP 97.6; O2SAT 99
[2023-03-01 20:07] VITALS: BP 120/70; PULSE 80; RESP 18; TEMP 97.8; O2SAT 97
[2023-03-01] MEDS ORDERED: MAG HYDROX/AL HYDROX/SIMETH ES 30 ML SUSPENSION UDCUP PO PRN (20:15)
[2023-03-01] MEDS ORDERED: BENZOCAINE/MENTHOL LOZENGE PO PRN (20:15)
[2023-03-01] MEDS ORDERED: ACETAMINOPHEN 325 MG TABLET PO PRN (20:15)
[2023-03-01] MEDS ORDERED: MAGNESIUM HYDROXIDE SUSPENSION 30 ML UDCUP PO PRN (20:15)
[2023-03-01] MEDS ORDERED: BACITRACIN 28 GM OINTMENT TP PRN (20:15)
[2023-03-01] MEDS ORDERED: IBUPROFEN 600 MG TABLET PO PRN (20:15)
[2023-03-01] MEDS ORDERED: OMEPRAZOLE 20 MG CAPSULE PO PRN (20:15)
[2023-03-01] MEDS ORDERED: CloNIDine HCL 0.1 MG TABLET PO PRN (20:15)
[2023-03-01] MEDS ORDERED: LOPERAMIDE HCL 2 MG CAPSULE PO PRN (20:15)
[2023-03-01] MEDS ORDERED: PETROLATUM,WHITE 28 GM JELLY TP PRN (20:15)
[2023-03-01] MEDS ORDERED: ALBUTEROL SULFATE HFA 90 MCG/PUFF 8 GM INHALER IH PRN (20:15)
[2023-03-01] MEDS ORDERED: DOCUSATE SODIUM 100 MG CAPSULE PO PRN (20:15)
[2023-03-01] MEDS: HALOPERIDOL 5 MG TABLET PO SCH (20:47)
[2023-03-02] MEDS: CHOLECALCIFEROL (VIT D3) 1,000 UNITS [25 MCG] TABLET PO SCH (08:06)
[2023-03-02] MEDS: LORazepam 2 MG TABLET PO PRN ×2 (08:06→17:10)
[2023-03-02 09:19] VITALS: BP 137/86; PULSE 82; RESP 18; TEMP 97.7; O2SAT 99
[2023-03-02] MEDS: LOVASTATIN 20 MG TABLET PO SCH (17:10)
[2023-03-02 20:06] VITALS: BP 140/78; PULSE 80; RESP 18; TEMP 97.8; O2SAT 97
[2023-03-02] MEDS: ZOLPIDEM TARTRATE 10 MG TABLET PO PRN (20:07)
[2023-03-02] MEDS: HALOPERIDOL 5 MG TABLET PO SCH (20:07)
[2023-03-03] MEDS: CHOLECALCIFEROL (VIT D3) 1,000 UNITS [25 MCG] TABLET PO SCH (08:10)
[2023-03-03 08:30] VITALS: BP 122/77; PULSE 73; RESP 17; TEMP 97.1; O2SAT 98
[2023-03-03 12:03] VITALS: BP 136/82; PULSE 78; RESP 17; TEMP 98; O2SAT 97
[2023-03-03] MEDS: LOVASTATIN 20 MG TABLET PO SCH (16:37)
[2023-03-03] MEDS: HALOPERIDOL 5 MG TABLET PO SCH (20:27)
[2023-03-03 21:35] VITALS: BP 126/78; PULSE 72; RESP 17; TEMP 97.8; O2SAT 97
[2023-03-04 08:09] VITALS: BP 129/84; PULSE 75; RESP 17; TEMP 98; O2SAT 97
[2023-03-04] MEDS: CHOLECALCIFEROL (VIT D3) 1,000 UNITS [25 MCG] TABLET PO SCH (09:30)
[2023-03-04] MEDS: LOVASTATIN 20 MG TABLET PO SCH (17:10)
[2023-03-04] MEDS: HALOPERIDOL 5 MG TABLET PO SCH (20:42)
[2023-03-04 20:55] VITALS: BP 121/75; PULSE 76; RESP 18; TEMP 98; O2SAT 97
[2023-03-05 08:10] VITALS: BP 119/75; PULSE 83; RESP 18; TEMP 97.6; O2SAT 98
[2023-03-05] MEDS: CHOLECALCIFEROL (VIT D3) 1,000 UNITS [25 MCG] TABLET PO SCH (08:21)
[2023-03-05] MEDS: LOVASTATIN 20 MG TABLET PO SCH (16:58)
[2023-03-05 20:07] VITALS: BP 140/79; PULSE 81; RESP 18; TEMP 97.8; O2SAT 96
[2023-03-05] MEDS: HALOPERIDOL 5 MG TABLET PO SCH (20:44)
[2023-03-05] MEDS: ZOLPIDEM TARTRATE 10 MG TABLET PO PRN (20:44)
[2023-03-06] MEDS: ONDANSETRON HCL 4 MG TABLET PO PRN (04:51)
[2023-03-06] MEDS: CHOLECALCIFEROL (VIT D3) 1,000 UNITS [25 MCG] TABLET PO SCH (08:05)
[2023-03-06 08:13] VITALS: BP 128/82; PULSE 71; RESP 17; TEMP 97.7; O2SAT 98
[2023-03-06] MEDS: LOVASTATIN 20 MG TABLET PO SCH (16:28)
[2023-03-06 20:05] VITALS: BP 114/64; PULSE 80; RESP 18; TEMP 98; O2SAT 96
[2023-03-06] MEDS: HALOPERIDOL 5 MG TABLET PO SCH (20:37)
[2023-03-07 08:21] VITALS: BP 126/76; PULSE 65; RESP 17; TEMP 97.6; O2SAT 98
[2023-03-07] MEDS: LORazepam 2 MG TABLET PO PRN ×3 (08:23→20:25)
[2023-03-07] MEDS: CHOLECALCIFEROL (VIT D3) 1,000 UNITS [25 MCG] TABLET PO SCH (08:23)
[2023-03-07] MEDS: ONDANSETRON HCL 4 MG TABLET PO PRN (13:00)
[2023-03-07] MEDS: HALOPERIDOL 5 MG TABLET PO PRN (13:18)
[2023-03-07] MEDS: LOVASTATIN 20 MG TABLET PO SCH (17:11)
[2023-03-07 20:05] VITALS: BP 115/74; PULSE 81; RESP 18; TEMP 98.1; O2SAT 97
[2023-03-07] MEDS: HALOPERIDOL 5 MG TABLET PO SCH (20:07)
[2023-03-07] MEDS: ZOLPIDEM TARTRATE 10 MG TABLET PO PRN (22:31)
[2023-03-08 08:33] VITALS: BP 122/73; PULSE 79; RESP 18; TEMP 98; O2SAT 98
[2023-03-08] MEDS: CHOLECALCIFEROL (VIT D3) 1,000 UNITS [25 MCG] TABLET PO SCH (08:48)
[2023-03-08] MEDS: LOVASTATIN 20 MG TABLET PO SCH (17:47)
[2023-03-08] MEDS: HALOPERIDOL 5 MG TABLET PO SCH (20:53)
[2023-03-08 20:54] VITALS: BP 139/66; PULSE 77; RESP 17; TEMP 97.5; O2SAT 95
[2023-03-08] MEDS: ZOLPIDEM TARTRATE 10 MG TABLET PO PRN (21:38)
[2023-03-09] MEDS: LORazepam 2 MG TABLET PO PRN (08:17)
[2023-03-09] MEDS: CHOLECALCIFEROL (VIT D3) 1,000 UNITS [25 MCG] TABLET PO SCH (08:17)
[2023-03-09 08:24] VITALS: BP 139/84; PULSE 80; RESP 18; TEMP 97.8; O2SAT 98
[2023-03-09] MEDS: HALOPERIDOL 5 MG TABLET PO PRN (17:21)
[2023-03-09] MEDS: LOVASTATIN 20 MG TABLET PO SCH (17:21)
[2023-03-09 20:01] VITALS: BP 125/75; PULSE 84; RESP 18; TEMP 97.8
[2023-03-09] MEDS: HALOPERIDOL 5 MG TABLET PO SCH (20:27)
[2023-03-10 08:01] VITALS: BP 135/65; PULSE 90; RESP 15; TEMP 97.4; O2SAT 99
[2023-03-10] MEDS: CHOLECALCIFEROL (VIT D3) 1,000 UNITS [25 MCG] TABLET PO SCH (08:07)
[2023-03-10] MEDS: ONDANSETRON HCL 4 MG TABLET PO PRN (08:59)
[2023-03-10] MEDS: LOVASTATIN 20 MG TABLET PO SCH (17:18)
[2023-03-10] MEDS: HALOPERIDOL 5 MG TABLET PO PRN (17:18)
[2023-03-10] MEDS: HALOPERIDOL 5 MG TABLET PO SCH (20:36)
[2023-03-11 02:38] VITALS: BP 138/68; PULSE 82; RESP 18; TEMP 97.8; O2SAT 98
[2023-03-11] MEDS: CHOLECALCIFEROL (VIT D3) 1,000 UNITS [25 MCG] TABLET PO SCH (08:04)
[2023-03-11 09:44] VITALS: BP 130/72; PULSE 80; RESP 18; TEMP 97.5; O2SAT 97
[2023-03-11] MEDS: LOVASTATIN 20 MG TABLET PO SCH (16:53)
[2023-03-11] MEDS: HALOPERIDOL 5 MG TABLET PO SCH (20:17)
[2023-03-11 20:47] VITALS: BP 117/75; PULSE 76; RESP 18; TEMP 97.8; O2SAT 97
[2023-03-12] MEDS: HALOPERIDOL 5 MG TABLET PO PRN (08:09)
[2023-03-12] MEDS: CHOLECALCIFEROL (VIT D3) 1,000 UNITS [25 MCG] TABLET PO SCH (08:09)
[2023-03-12 08:50] VITALS: BP 124/84; PULSE 95; RESP 18; TEMP 97.7; O2SAT 99
[2023-03-12] MEDS: LOVASTATIN 20 MG TABLET PO SCH (16:53)
[2023-03-12] MEDS: HALOPERIDOL 5 MG TABLET PO SCH (20:25)
[2023-03-12 20:53] VITALS: BP 123/68; PULSE 77; RESP 18; TEMP 97.5; O2SAT 98
[2023-03-13 06:28] VITALS: BP 118/58; PULSE 78; RESP 18; TEMP 97.8; O2SAT 96
[2023-03-13 07:28] VITALS: RESP 16
[2023-03-13] MEDS: CHOLECALCIFEROL (VIT D3) 1,000 UNITS [25 MCG] TABLET PO SCH (08:27)
[2023-03-13 11:27] VITALS: BP 126/86; PULSE 86; RESP 18; TEMP 97.9; O2SAT 97
[2023-03-13] MEDS: LOVASTATIN 20 MG TABLET PO SCH (17:10)
[2023-03-13] MEDS: HALOPERIDOL 5 MG TABLET PO SCH (20:03)
[2023-03-13 20:48] VITALS: BP 119/75; PULSE 67; RESP 16; TEMP 98; O2SAT 98
[2023-03-14] MEDS: CHOLECALCIFEROL (VIT D3) 1,000 UNITS [25 MCG] TABLET PO SCH (08:11)
[2023-03-14] MEDS: HALOPERIDOL 5 MG TABLET PO PRN (08:11)
[2023-03-14 08:19] VITALS: BP 128/83; PULSE 77; RESP 18; TEMP 97.9; O2SAT 98
[2023-03-14] MEDS ORDERED: HALO5TAB23 PO (12:36)
== END 2023-03-14 14:37 | disposition home or self-care (01) | DRG 885 ==
LOC: EMS 12:56 → B3A 17:32
PROVIDERS: ADMIT Psychiatry & Neurology Psychiatry; ATTEND Psychiatry & Neurology Psychiatry
DX: F20.9 Schizophrenia, unspecified (principal); I10 Essential (primary) hypertension; E78.00 Pure hypercholesterolemia, unspecified; K59.00 Constipation, unspecified; G47.00 Insomnia, unspecified; Z20.822 Contact with and (suspected) exposure to COVID-19; F41.9 Anxiety disorder, unspecified; E83.51 Hypocalcemia; F94.0 Selective mutism; Z79.899 Other long term (current) drug therapy
CPT/HCPCS: 80053; 80164; 80307; 85025; 99285; G0480; Q0162